=== PATIENT | female | born 1945 ===

== ENCOUNTER 2023-02-08 06:55 | Day surgery (SDC) | payer MEDICARE, BC, SELFPAY ==
--- OUTSIDE RECORDS SUMMARY | 2023-02-08 06:56 | XMS_ITS | Continuity of Care Document ---
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 Name Role Phone Ricky Luisa Dalal Primary Care Physician Encounter LT_[place] FIN [id number] Date(s): 04/25/22 - 05/15/22 [facility] [address] [address] Encounter Diagnosis Pain in right shoulder(Discharge Diagnosis) - 04/25/22 Discharge Disposition: Home Attending Physician: Norm Wells Admitting Physician: Luisa García Referring Physician: Luisa García Functional Status 05/09/22 Prior ADL Status Independent Prior Mobility Status Independent Prior Instrumental ADL Level Independent Prior Cognitive-Communication Skills Ind ependent 04/25/22 Lives With Significant other Living Situation Home independently Patient's Responsibilities Rehab Communi ty mobility, 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, 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, Health and wellness, Home management, Laundry, Leisure/Play/Hobbies, Meal preparation, Personal ADL, Shopping, Social participation Problem List Condition Confirmation Course Effective Dates Status Health St atus Informant Atrial fibrillation Confirmed Active Physical therapy Note * Jane Perez: PERFORM Event Display: Physical Therapy Rehab Note Authored Date: [id number] * Jane Perez: PERFORM Event Display: Physical Therapy Rehab Note Authored Date: [id number] * Event Display: Physical Therapy Rehab Note Patient Care team information Personnel Name: Luisa Ricky Address: Address: [address] [place] [id number]
--- OUTSIDE RECORDS SUMMARY | 2023-02-08 06:57 | XMS_ITS | Patient Health Record ---
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 Name Role Phone Ronald Mariama cedeño Primary Care Provider [phone] Allergies Allergen (clinical drug ingredient) Drug/Non Drug Allergy documented on EMR Reaction Allergy Type Onset Date Status denosumab Prolia extreme fatigue, myalgia Drug Allergy Active solifenacin VESIcare fatigue Drug Allergy Activ e Reason For Referral No Information Medications Medication SIG (Take, Route, Frequency, Duration) Notes Start Date End Date Status Gabapentin 100 MG 1 capsule Orally Onc e a day for 90 days 03/23/2019 Not-Taking Famvir 500 MG 1 tablet Orally PRN cold sores 02/12/2019 Active Gemfibrozil 600 MG TAKE 1 TABLET DAILY Not-Taking Eliquis 5 MG as directed Orally twice daily Active FLUoxetine HCl 20 MG 1 capsule Orally On ce a day for 90 Not-Taking Atorvastatin Calcium 40 MG TAKE 1 TABLET ONCE DAILY Orally Once a day Active Losartan Potassium-HCTZ 50-12.5 MG TAKE 1 TABLET DAILY Orally Once a day Active metFORMIN HCl 500 MG TAKE ONE-HALF (1/2) TABLET WITH A MEAL ONCE A DAY Not-Taking Omeprazole 20 MG TAKE 1 CAPSULE DAILY Orally Once a day Active Carvedilol 25 MG TAKE 1 TABLET TWICE A DAY DIRECTED Orally Twice a day Active Flecainide Acetate 50 MG as directed Ora lly twice a day Active Calcium + D3 600-200 MG-UNIT Orally Not-Taking Senokot Laxative Gummies 8.7 MG 4 tablets as needed Orally Once a day for 30 day(s) OTC Active Vitamin B Complex - Orally Not-Taking Detrol LA 4 MG 1 capsule Orally Onc e a day Active Tolterodine Tartrate ER 4 MG TAKE 1 CAPSULE DAILY Not-Curtis ing Sertraline HCl 50 MG 1 tablet Orally Onc e a day Active Aspir-81 81 MG 1 tablet Orally Once a day Not-Taking Fenofibrate 54 MG 1 tablet with food Orally Once a day Active Immunizations Vaccine Route Administration Date Status Comme nts Pneumococcal IM Intramuscular 03/25/2014 Administered INFLUENZA VIRUS VACCINE FLUVIRIN Unknown 03/10/2015 Administered @SUPR 1 MONTH AGO INFLUENZA VIRUS VACCINE FLUVIRIN IM Intramuscular 02/22/2017 Administered Influenza 'afluria' given pt tolerated...Eb Pneumococcal IM Intramuscular 02/22/2017 Administered Pneu mococcal 23 given pt tolerated...Eb Tdap TETNUS IM Intramuscular 07/15/2018 Administered Pt tolerated injection well [facility] [id number] Prevnar 13/pneumococcal 13 Unknown 02/23/2021 Administered Prevnar 13 given [facility]#[id number] Social History Tobacco Use: Social History Observation Description Date Details (start date - stop date) Never Smoker NA - NA Tobacco Use/Smoking Question Answer Notes Are you a nonsmoker Alcohol Screen Question Answer Notes Did you have a drink contain ing alcohol in the past year? Yes How often did you have a dri nk containing alcohol in the past year? Monthly or less (1 point) How many drinks did you have on a typical day when you were drinking in the past year? 1 or 2 drinks (0 point) How often did you have 6 or more drinks on one occasion in the past year? Never (0 point) Points 1 Interpretation Negative Tobacco use other than smoking: Question Answer Notes Are you an other tobacco user? N o Problems Problem Type SNOMED Code ICD Code Onset Dates Problem Status W/U Status Risk Notes Problem Gastro-esophageal reflux disease without esophagitis (311629999) Gastro-esophagea l reflux disease without esophagitis (K21.9) Active confirmed Problem Screening for malignant neoplasm of breast (026314872) Encounter for screening mammogram for malignant neoplasm of breast (Z12.31) Active confirmed Problem Screening for malignant neoplasm of colon (572493186) Encounter for screening for malignant neoplasm of colon (Z12.11) Active confirmed Problem Screening for osteoporosis (479544063) Encounter for screening for osteoporosis (Z13.820) Active confirmed Problem Vaccination given (399371433) Encounter for immunization (Z23) Active confirmed Problem Essential hypertension (79247547) Essential (primary) hypertension (I10) Active confirmed Problem Body mass index 30+ - obesity (297306417) Body mass index (BMI) 30.0-30.9, adult (Z68.30) Active confirmed Problem Hyperlipidemia (59953059) Hyperlipidemia, unspecified (E78.5) Active confirmed Problem Hyperlipidemia (81022406) Other hyperlipidemia (E78.4) Active confirmed Problem Complication due to diabetes mellitus type 2 (42742687486141) Type 2 diabetes mellitus with other specified complication (E11.69) Active confirmed Problem Body mass index 30.0 0 to 34.99 (320441541703607) Body mass index (BMI) 31.0-31.9, adult (Z68.31) Active confirmed Problem Vitamin D deficiency (12471713) Vitamin D deficiency, unspecified (E55.9) Active confirmed Problem Mixed hyperlipidemia (550077314) Mixed hyperlipidemia (E78.2) Active confirmed Problem Cough (64170788) Cough (R05) Active confirmed Problem Constipation (78586065) Constipation, unspecified (K59.00) Active confirmed Problem Fatty liver (901515771) Fatty (change of) liver, not elsewhere classified (K76.0) Active confirmed Problem Abnormal gait (08416606) Unsteadiness on feet (R26.81) Active confirmed Problem Type II diabetes mellitus without complication (613378644) Type 2 diabetes mellitus without complications (E11.9) Active confirmed Problem Paroxysmal atrial fibrillation (112013084) Paroxysmal atrial fibrillation (I48.0) Active confirmed Problem Diabetes mellitus without complication (511691503) Other specified diabetes mellitus without complications (E13.9) Active confirmed Problem Atherosclerosis of aorta (67305153) Atherosclerosis of aorta (I70.0) Active confirmed CTA of the chest 07/2015 Problem Atherosclerosis of artery (614185650) Atherosclerosis of other arteries (I70.8) Active confirmed Ct of pelvis 02/2019 in docs, calcified iliac arteries Problem Herpesviral vesicula r dermatitis (486110632) 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) Active confirmed Problem Basal cell carcinoma of nose (648847363) Basal cell carcinoma of skin of nose (C44.311) Active confirmed Problem Basal cell carcinoma of face (336066318) Basal cell carcinoma of skin of other parts of face (C44.319) Active confirmed Problem Malignant neoplasm o f skin (704532698) Unspecified malignant neoplasm of skin, unspecified (C44.90) Active confirmed Problem Basal cell carcinoma of skin (268947379) Basal cell carcinoma of skin, unspecified (C44.91) Active confirmed Problem Malignant neoplasm o f female breast (348461524) Malignant neoplasm of unspecified site of unspecified female breast (C50.919) Active confirmed Problem Benign neoplasm of skin of face (66600993) Other benign neoplasm of skin of other parts of face (D23.39) Active confirmed Problem Major depression, single episode, in complete remission (33541923) Major depressive disorder, single episode, in full remission (F32.5) Active confirmed Problem Seborrheic keratosis (730542279) Other seborrheic keratosis (L82.1) Active confirmed Problem Acquired spondylolisthesis (199901792) Spondylolysis, cervical region (M43.02) Active confirmed Problem 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, 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) Active confirmed Problem Overactive bladder (121823011) Overactive bladder (N32.81) Active confirmed Problem Skin sensation disturbance (62220177) Paresthesia of skin (R20.2) Active confirmed Problem Elevated levels of transaminase & lactic acid dehydrogenase (807421025) Nonspecific elevation of levels of transaminase and lactic acid dehydrogenase [LDH] (R74.0) Active confirmed Problem Long-term current us e of antiplatelet drug (730856483836850) detention (current) use of aspirin (Z79.82) Active confirmed Problem Pure hypercholesterolemia (331495123) Pure hypercholesterol emia, unspecified (E78.00) Active confirmed Problem Chronic idiopathic constipation (36973998) Chronic idiopathic constipation (K59.04) Active confirmed Problem 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) Cervical disc disorder with myelopathy, mid-cervical region, unspecified level (M50.020) Active confirmed Problem Body mass index 30+ - obesity (776463868) Body mass index [BMI]30.0-30.9, adult (Z68.30) Active confirmed Encounters Encounter Location Date Provider Diagnosis [facility] [address] [place], [place] [id number] 02/16/2022 [facility] [address] [place], [place] [id number] 02/23/2022 [facility] [address] [place], [place] [id number] 12/18/2022 Mariama Cardenas Plan Of Treatment Pending Test Test Name Order Date DEXA 02/12/2019 DEXA 02/18/2018 Vitamin B12 and Folate 04/17/2016 Hemoglobin A1c 03/02/2017 Hemoglobin A1c 02/23/2021 Lipids, Total, Serum 02/22/2017 TSH 06/08/2014 TSH+Free T4 06/18/2017 MRI : C spine 05/09/2017 Urine Culture and Sensitivity 03/15/2015 Urine Culture and Sensitivity 06/08/2014 Urine Culture and Sensitivity 06/06/2016 BUN, Creatinine 05/09/2017 MRI : Brain with and without contrast Vitamin D, 25-Hydroxy 03/15/2015 Microalb/Creat Ratio, Randm Ur 9 TSH+Free T4 04/17/2016 URINALYSIS REFLEX 03/15/2015 CMP 06/08/2014 CMP 07/26/2014 CMP 02/22/2017 CMP 05/03/2014 CMP 04/17/2016 CMP 06/18/2017 CMP 03/15/2015 HGB A1C 02/22/2017 HGB A1C 04/17/2016 CT SACRUM AND COCCYX WITHOUT CONTRAST US LIVER 04/11/2015 BIOPSY, SKIN ADD-ON 04/17/2018 urine microalbumin 04/17/2016 urine microalbumin 02/22/2017 Microalb/Creat Ratio, Randm Ur 8 Vitamin D, 1,25 + 25-Hydroxy 03/16/2019 OCCULT BLOOD IFOB 06/18/2017 CBC (INCLUDES DIFF/PLT) 03/16/2019 CBC 02/23/2021 CBC 04/17/2016 CBC 02/22/2017 LIPID PANEL 06/18/2017 LIPID PANEL 04/17/2016 CT ABDOMEN & PELVIS W/WO CONT 02/23/2021 LIPID PANEL 03/16/2019 VITAMIN D 25-HYDROXY 06/18/2017 VITAMIN D 25-HYDROXY 04/17/2016 CBC 06/18/2017 CMP 02/23/2021 CMP 03/16/2019 BMP 03/23/2019 CT Abdomen 02/12/2019 Biospy Left Side Face 03/08/2021 Biospy Right Side Nose 03/08/2021 Insurance Providers Payer Name Payer Address Payer Phone Subscriber Number Group Number Insured Name Patient Relationship to Insured Coverage Start Date Coverage End Date Medicare PartAB [address] [place] [address] [id number] SHASHANK TORRES Self - patient is the insured 1 [facility] Insurance Comp [address] [place] [phone] [id number] PLAN F SHASHANK TORRES Self - patient is the insured 6 Medical (General) History Medical History History ICD Code BREAST CANCER 2012 IORT 2013 appendicitis- Appendectomy tonsillectomy bladder suspension BOKEN WRIST ess Hypertension Hyperlipidemia afib Surgical History Surgery Date(Month/Year) IORT 2013 tonsillectomy 1968 bladder suspension 1984 appendectomy 1970 Mohs proceedure for basal cell cancer no se Hospitalization History Reason Date(Month/Year) SEE ABOVE
--- OUTSIDE RECORDS SUMMARY | 2023-02-08 06:57 | XMS_ITS | Continuity of Care Document ---
Author Name Unknown Address [address] [place] [address] Phone [facility] Address [address] [place] [address] Phone Care Team Providers Care Occupational Therapy Co Director Name Role Phone MD Fransisco Carmen Primary Care Provider Care Teams Patient Care Team Team Status: Active Member Role Status Mamta Carmen MD Primary Care Provider Active Visit Care Team Team Status: Inactive Member Role Status Mamta Carmen MD Primary Care Provide r, Attending Provider, Referring Provider Active Visit Care Team Team Status: Inactive Member Role Status Mamta Carmen MD Primary Care Provide r, Attending Provider, Referring Provider Active Chief Complaint and Reason for Visit Chief Complaint New Patient (PCP Onl y) LAB Reason for Visit Pre-op exam Allergies, Adverse Reactions, Alerts Allergen Type Severity Reaction Last Updated Verified Status solifenacin Allergy Unknown Fatigue January 17, 2023 1:30pm Ye s Active Social History Smoking Status Unknown if ever smoked Additional Data Assigned Sex Female Family History Relationship Condition Age at Onset Recorded Date/T edwardo mother Heart failure Unknown 64 father Heart disease Unknown Problems Active Problems Medical Problem Onset Date Status Multiple nevi Active Back pain, lumbosacral Active UTI (urinary tract infection) Ac tive H/O wrist surgery Active H/O lumpectomy Active Screening for malignant neoplasm of colon Active History of mammogram Active Skin tag Active Diabetes mellitus Active OAB (overactive bladder) Active Overactive bladder Active Wrist pain Active Anxiety Active Fibrillation, atrial Active Depression Active History of bladder suspension procedure Active Heart murmur Active Hyperlipemia Active History of Papanicolaou smear of cervix Active Arm pain, right Active Night sweats Active Over weight Active Breast cancer Active Valgus deformity of great toe Ac tive Pre-op exam Active Change in bowel movement Active Radiculopathy Active Trigger finger Active History of appendectomy Active History of partial mastectomy Ac tive History of tonsillectomy Active Hip pain Active Coronary vasospasm Active Gastroesophageal reflux Active GERD (gastroesophageal reflux disease) Active Cancer Active Pes planovalgus Active High blood pressure Active Hypertension Active Pneumonia Active Dehydration Active Inactive/Resolved Problems Medical Problem Onset Date Status Hx of colonoscopy Resolved Medications Medication Status Dose Units Route Directions Qty Days St art Date End Date Instructions Fenofibrate Disconti nued 54 MG PO daily October 18, 2022 9:05am October 18, 2022 11:34a m Tolterodine Disconti nued 4 MG PO daily October 18, 2022 9:06am October 18, 2022 11:34a m By mouth once a day Atorvastatin Disconti nued 40 MG PO daily October 18, 2022 9:06am November 19, 2022 2:24pm by mouth once a day for Cholesterol Carvedilol Disconti nued 25 MG PO 2 times per day 180 October 18, 2022 9:06am Octobe r 2022 1:59pm must administer with a meal/food Omeprazole Magnesium (Acid Loan Review Officer (Omeprazole) ) 20 mg capsule,windy yed release(DR/E C) Disconti nued 20 MG PO daily October 18, 2022 9:07am Octobe r 2022 1:59pm by mouth once a day Tolterodine Active 4 MG PO daily October 18, 2022 11:33am Fenofibrate Disconti nued 54 MG PO daily October 18, 2022 11:34am Octobe r 2022 1:59pm Atorvastatin Disconti nued 40 MG PO daily November 19, 2022 2:24pm Octobe r 2022 1:59pm by mouth once a day for Cholesterol Atorvastatin Active 40 MG PO daily 90 Octo mallika 2022 1:57pm by mouth once a day for Cholesterol Carvedilol Active 25 MG PO 2 times p er day 180 January 17, 2023 1:57pm must administer with a meal/food Famciclovir Active 125 MG PO 2 times per day January 17, 2023 1:58pm BY mouth twice a day as needed. Fenofibrate Active 54 MG PO daily 90 Octob er 2022 1:58pm Losartan-Hyd rochlorothia zide Active 1 TAB PO daily January 17, 2023 1:58pm by mouth once a day Omeprazole Magnesium (Acid Loan Review Officer (Omeprazole) ) 20 mg capsule,windy yed release(DR/E C) Active 20 MG PO daily 90 January 17, 2023 1:59pm by mouth once a day Sertraline Active 100 MG PO daily 90 Octobe r 2022 1:59pm by mouth once a day for mood Omeprazole Magnesium (Acid Loan Review Officer (Omeprazole) ) 20 mg capsule,windy yed release(DR/E C) Disconti nued 20 MG PO daily September 27, 2022 12:00am October 18, 2022 9:07am by mouth once a day Carvedilol Disconti nued 25 MG PO 2 times per day September 27, 2022 12:00am October 18, 2022 9:07am must administer with a meal/food Atorvastatin Disconti nued 40 MG PO daily September 27, 2022 12:00am October 18, 2022 9:07am by mouth once a day for Cholesterol Tolterodine Disconti nued 4 MG PO daily September 27, 2022 12:00am October 18, 2022 9:07am By mouth once a day Famciclovir Disconti nued 125 MG PO 2 times per day September 27, 2022 12:00am Octobe r 2022 1:33pm BY mouth twice a day as needed. Ketoconazole Active 1 APPLIC TOPICAL LY 2 times per day September 27, 2022 12:00am 1 a small amount to affected area twice a day as needed. Fenofibrate Disconti nued 54 MG PO daily September 27, 2022 12:00am October 18, 2022 9:07am Sertraline Disconti nued 100 MG PO daily September 27, 2022 12:00am Octobe r 2022 1:59pm by mouth once a day for mood Losartan-Hyd rochlorothia zide Disconti nued 1 TAB PO daily September 27, 2022 12:00am Octobe r 2022 1:59pm by mouth once a day Apixaban (Eliquis) 5 mg tablet Active 5 MG PO 2 times per day September 27, 2022 12:00am Twice a day Flecainide Active 50 MG PO 2 times p er day September 27, 2022 12:00am twice a day Famciclovir Disconti nued 125 MG PO 2 times per day January 17, 2023 1:31pm Octobe r 2022 1:59pm BY mouth twice a day as needed. Immunizations Immunization Event Date Not Given Reason Dose Number Heel Cementer Machine Lot Number Vaccine Information Statement (VIS) Detail *Td Adult Unsp Formulation June 25, 1996 *COVID-19 Moderna mRNA (12Y Up)(Spikevax) May 13, 2020 *COVID-19 Moderna mRNA (12Y Up)(Spikevax) June 10, 2020 *Influenza, unspecified formulation January 16, 1996 *Influenza, unspecified formulation January 27, 2000 *Influenza, unspecified formulation January 28, 2016 *Influenza, unspecified formulation April 07, 2020 *Influenza, unspecified formulation January 07, 2020 *Influenza, unspecified formulation March 24, 2021 Relevant Diagnostic Tests and/or Laboratory Data Laboratory Results Test Date/Time Result Interpretation Reference Range Result Comment Performing Site White Blood Count January 17, 2023 8:00am 9.42 K/mm3 4.0-11.0 WEE[facility] [id number] [address] [facility] [address] Red Blood Count January 17, 2023 8:00am 4.54 M/mm3 3.85-5.4 WEEKS [facility] 36673-06 [address] [facility] [address] Hemoglobin January 17, 2023 8:00am 11.4 gm/dL 12.0-16.0 [facility]EE[facility] 16532-14 [address] [facility] [address] Hematocrit January 17, 2023 8:00am 37.6 % 36.0-47 [facility] 62223-51 [address] [facility] [address] Mean Corpuscular Volume January 17, 2023 8:00am 82.8 fl 82-98 [facility] 23359-48 [address] [facility] [address] Mean Corpuscular Hemoglobin January 17, 2023 8:00am 25.1 pg 27-34 [facility] 95841-02 [address] [facility] [address] Mean Corpuscular Hemoglobin Concent January 17, 2023 8:00am 30.3 g/dl 27-34 [facility] 55788-32 [address] [facility] [address] Red Cell Distribution Width January 17, 2023 8:00am 16.1 % 11.0-15.0 [facility] 89332-39 [address] [facility] [address] Platelet Count January 17, 2023 8:00am 378 K/uL 130-430 [facility] 67171-93 [address] [facility] [address] Mean Platelet Volume January 17, 2023 8:00am 10.4 fL 8.0-12.5 [facility] 14718-01 [address] [facility] [address] Thyroid Stimulating Hormone (TSH) January 17, 2023 8:00am 1.95 uIU/ml 0.32-5.6 [facility]EE[facility] 38182-24 [address] [facility] [address] Hemoglobin A1c January 17, 2023 8:00am 7.2 % 4.0-6.0 [facility]EE[facility] 60005-63 [address] [facility] [address] Estimated Average Glucose mg/dL January 17, 2023 8:00am 160 mg/dL [facility] 13312-98 [address] [facility] [address] Urine Color January 17, 2023 8:00am Light yellow YELLOW [facility] 04414-59 [address] [facility] [address] Urine Appearance January 17, 2023 8:00am Clear CLEAR [facility] 93395-17 [address] [facility] [address] Urine Glucose (UA) January 17, 2023 8:00am Negative mg/dl NEG [facility] 74375-24 [address] [facility] [address] Urine Bilirubin January 17, 2023 8:00am Negative NEG [facility] 80802-12 [address] [facility] [address] Urine Ketones January 17, 2023 8:00am Negative mg/dL NEG [facility] 50326-72 [address] [facility] [address] Urine Specific Hardy January 17, 2023 8:00am 1.015 1.001-1.03 5 [facility] 75160-08 [address] [facility] [address] Urine Blood January 17, 2023 8:00am Negative NEG [facility] 46270-54 [address] [facility] [address] Urine pH January 17, 2023 8:00am 6.5 5.5-7.5 [facility] 10468-00 [address] [facility] [address] Urine Protein January 17, 2023 8:00am Negative mg/dl NEG [facility] 29019-08 [address] [facility] [address] Urine Urobilinogen January 17, 2023 8:00am 0.2 EU/dL 0.2-1.0 [facility]EE[facility] 79896-09 [address] [facility] [address] Urine Nitrite January 17, 2023 8:00am Negative NEG [facility] 85840-42 [address] [facility] [address] Urine Leukocyte Esterase January 17, 2023 8:00am Negative NEG [facility] 85923-78 [address] [facility] [address] Urine Culture Indicated January 17, 2023 8:00am No NO [facility] 19071-47 [address] [facility] [address] Glucose Level January 17, 2023 8:00am 129 mg/dL 70-100 [facility] 74583-12 [address] [facility] [address] Blood Urea Nitrogen January 17, 2023 8:00am 18 mg/dL 7-25 [facility] 93229-73 [address] [facility] [address] Creatinine January 17, 2023 8:00am 0.98 mg/dL 0.6-1.2 [facility] 88596-96 [address] [facility] [address] Estimat Glomerular Filtration Rate January 17, 2023 8:00am 60 >60 Normal Range: > 60 mL/min/1.73 square metersThis patient's estimated GFR was calculated using the 2020 CKD-EPI equation. Assessment of the estimated GFR is not appropriate when creatinine concentrations are rapidly changing. For clinical situations in which a more precise estimate of GFR is necessary, consider alternative methods of GFR estimation such as a 24-hour urine creatinine clearance. [facility] 79163-18 [address] [facility] [address] Sodium Level January 17, 2023 8:00am 137 mmol/L 138-146 [facility] 73294-54 [address] [facility] [address] Potassium Level January 17, 2023 8:00am 4.1 mmol/L 3.5-5.1 [facility]EE[facility] 24763-83 [address] [facility] [address] Chloride Level January 17, 2023 8:00am 102 mmol/L 98-110 [facility] 90181-90 [address] [facility] [address] Carbon Dioxide Level January 17, 2023 8:00am 27 mmol/L 21-31 [facility] 84770-38 [address] [facility] [address] Anion Gap January 17, 2023 8:00am 12.1 8-16 [facility] 17302-21 [address] [facility] [address] Calcium Level January 17, 2023 8:00am 9.2 mg/dL 8.6-10.3 [facility] 08333-26 [address] [facility] [address] LDL Cholesterol Direct January 17, 2023 8:00am 85 mg/dL <99 [facility] 16101-70 [address] [facility] [address] Total Protein January 17, 2023 8:00am 7.2 gm/dL 6.0-8.3 [facility] 83725-42 [address] [facility] [address] Albumin January 17, 2023 8:00am 4.1 gm/dL 3.5-5.7 [facility] 58365-27 [address] [facility] [address] Total Bilirubin January 17, 2023 8:00am 0.6 mg/dL 0.3-1.0 [facility]EE[facility] 17938-17 [address] [facility] [address] Aspartate Amino Transf (AST/SGOT) January 17, 2023 8:00am 23 IU/L 13-39 [facility] 50594-93 [address] [facility] [address] Alanine Aminotransfera se (ALT/SGPT) January 17, 2023 8:00am 16 U/L 7-52 [facility] 93459-25 [address] [facility] [address] Alkaline Phosphatase January 17, 2023 8:00am 83 U/L 34-104 [facility] 45684-05 [address] [facility] [address] Urine Random Microalbumin January 17, 2023 8:00am 1.3 mg/dL [facility] 36654-50 [address] [facility] [address] Urine Creatinine January 17, 2023 8:00am 28.9 mg/dL NO REFERENCE RANGE AVAILABLE [facility] 56276-12 [address] [facility] [address] Urine Microalbumin/C reatinine Ratio January 17, 2023 8:00am 44.98 ug/mg Cr 0-30 [employer] Definition of Microalbuminuria Random CollectionNormal <30 ug/mg creatinineMicroa lbuminuria 30 - 300 ug/mg creatinineClinic al albuminuria >300 ug/mg creatinine [facility]EE[facility] 10287-30 [address] [facility] [address] Vital Signs Vital Reading Result Reference Range Collection Date/Time Height 62.5 [in_i] January 17 9:03am Weight 175.00 [lb_av] January 17, 2023 9:03am Body Temperature 97.7 [degF] 97.6-99.6 January 9:03am Heart Rate 109 /min 60-100 January 17, 2 023 9:03am Respiratory rate 18 /min 12-18 January 9:03am Oxygen saturation by Pulse oximetry 94 % 92-100 January 17, 2023 9 :03am BP Systolic 132 mm[Hg] 90-130 January 17, 2 023 9:03am BP Diastolic 84 mm[Hg] 70-80 January 17, 2 023 9:03am BMI (Body Mass Index) 31.5 kg/m2 Octobe r 2022 9:03am Insurance Providers Guarantor SHASHANK SCHULTZ Address [address] [facility] [address] Contact Info. Home Phone: Payer Policy Id Coverage Id Subscriber's Name Subscriber Id Effective Date Expiration Date ANTH [employer] [facility] [id number] [id number] 23 SHASHANK SCHULTZ [id number] MEDICARE [id number] SHASHANK SCHULTZ [id number] OTHER INS Encounters Encounter Location(s) Arrival/Admit Date Discharge/Depart Date Provider(s) Departed Physician/Provi raquel Office Visit [facility] January 17, 2023 1:21pm January 17, 2023 2:20pm Fransisco Carmen MD Departed Referred [facility] [place] January 17, 2023 2:09pm January 17, 2023 2:10pm Fransisco Carmen MD Recent Diagnosis Onset Date Pre-op exam Assessments Diagnosis Onset Date Resolution Status Pre-op exam noneactive Plan of Treatment Author Fransisco Carmen [facility] Authored January 17, 2023 2 :08pm check A1c- discussed conside ring metformin vs glp 1 . Fu sched in 3 months NSr on exam -followed Dr Patten check labs yearly follow up with Oncology provider at [facility] . medically cleared for cataract repair with stable medical issues. controlled rec try mag citrate for clean out given acute constipation Future Tests Future scheduled test information is unavailable Pending Tests Pending diagnostic test information is unavailable Future Visits Future appointment information is unavailable Referrals to Other Providers Referral information is unavailable Future Procedures Future procedure information is unavailable Future Medications Future medication information is unavailable Patient Instructions Patient instructions are unavailable
--- OUTSIDE RECORDS SUMMARY | 2023-02-08 06:57 | XMS_ITS | Patient Health Record ---
Author Name Unknown Organization [facility] Address [address] [place] [address] Care Team Providers Care Recycling Coordinator Name Role Phone Ronald HENSON, Mariama Primary Care Provider Elder Cantor Unavailable [phone] Allergies No Known Allergies Reason For Referral No Information Medications Medication SIG (Take, Route, Frequency, Duration) Notes Start Date End Date Status Coreg 25 MG 1 tablet Orally Twic e a day for 30 day(s) Active metFORMIN HCl 500 mg 0.5 tablet Orally O nce a day Active PROzac 20 MG 1 capsule Orally Onc e a day for 30 day(s) Active PriLOSEC OTC 20 MG 1 tablet 30 minutes before morning meal Orally Once a day for 30 day(s) Active Detrol LA 4 MG 1 capsule Orally Onc e a day for 30 day(s) Active Lipitor 40 MG 1 tablet Orally Once a day for 30 day(s) Active Losartan Potassium-HCTZ 100-12.5 MG 1 tablet Orally Once a day for 30 day(s) Active Social History Tobacco Use: Social History Observation Description Date Details (start date - stop date) Never Smoker NA - NA Alcohol Screening: Question Answer Notes Did you have a drink containing alcohol in the p ast year? No Points 0 Interpretation Negative Smoking Question Answer Notes Are you a: never smoker Problems Problem Type SNOMED Code ICD Code Onset Dates Problem Status W/U Status Risk Notes Problem 091139748 Spinal stenosis, lumbosacral region (M48.07) Active confirmed Problem 20020112 Other intervertebral disc displacement, lumbar region (M51.26) Active confirmed Problem 369116323536201 Trochanteric bursitis of right hip (M70.61) Active confirmed Problem 04731550 Acute pain of right hip (M25.551) Active confirmed Problem 26870358 DDD (degenerativ e disc disease), lumbar (M51.36) Active confirmed Problem 03066656 Myalgia, other site (M79.18) Active confirmed Plan Of Treatment Pending Test Test Name Order Date Scanogram 04/30/2019 XRAY PELVIS 1VW 05/04/2021 XRAY L SPINE 2VWS AP LAT 05/04/2021 Physical Therapy 2-3x a week x 4 weeks 0 04/30/2019 Insurance Providers Payer Name Payer Address Payer Phone Subscriber Number Group Number Insured Name Patient Relationship to Insured Coverage Start Date Coverage End Date MEDICARE [address] [place] [phone] [id number] Martha Jones Self - patient is the insured 2 [facility] [address] [place] [address] [id number] Martha Jones Self - patient is the insured 0 Medical (General) History Medical History History ICD Code No Hx provided by pt Surgical History Surgery Date(Month/Year) wrist surgery breast cancer bladder suspension, unspecified appendectomy tonsillectomy Hospitalization History Reason Date(Month/Year) for surgeries above
--- OUTSIDE RECORDS SUMMARY | 2023-02-08 06:57 | XMS_ITS | Continuity of Care Document ---
Author Name Unknown Address [address] [place] [address] Phone [facility] Address [address] [place] [address] Phone Care Team Providers Care Knockdown Man Name Role Phone MD Fransisco Carmen Primary Care Provider MD Farnaz Morton Attending Provider Care Teams Patient Care Team Team Status: Active Member Role Status Mamta Carmen MD Primary Care Provider Active Visit Care Team Team Status: Inactive Member Role Status Mamta Carmen MD Primary Care Provide r, Attending Provider, Referring Provider Active Visit Care Team Team Status: Inactive Member Role Status Mamta Carmen MD Primary Care Provider, Referring Prov ider Active Farnaz Morton MD Attending Provider Active Visit Care Team Team Status: Inactive Member Role Status Mamta Carmen MD Primary Care Provide r, Attending Provider, Referring Provider Active Visit Care Team Team Status: Inactive Member Role Status Mamta Carmen MD Primary Care Provider, Referring Prov ider Ирина Morton MD Attending Provider Active Chief Complaint and Reason for Visit Chief Complaint New Patient (PCP Onl y) LAB low back pain R10.9 - Unspecified abdominal pain Reason for Visit Pre-op exam Acute left flank pain Chronic constipation Allergies, Adverse Reactions, Alerts Allergen Type Severity Reaction Last Updated Verified Status solifenacin Allergy Unknown Fatigue January 23, 2023 1:30pm Ye s Active Social History [...] Active Overactive bladder Active Wrist pain Active DM type 2 (diabetes mellitus, type 2) Active Anemia Active Anxiety Active Fibrillation, atrial Active Depression [...] administer with a meal/food Omeprazole Magnesium (Acid [employer] (Omeprazole) ) 20 mg capsule,windy yed release(DR/E C) Disconti nued 20 MG PO daily October 18, 2022 9:07am Octobe r 2022 1:59pm by mouth once a day Tolterodine Disconti nued 4 MG PO daily October 18, 2022 11:33am Octobe r 2022 2:11pm Fenofibrate Disconti nued 54 MG PO daily October 18, 2022 11:34am Octobe r 2022 1:59pm Atorvastatin Disconti nued 40 MG PO daily November 19, 2022 2:24pm Octobe r 2022 1:59pm by mouth once a day for Cholesterol Tolterodine Active 4 MG PO daily Octob er 2022 2:11pm Atorvastatin Active 40 MG PO daily Jano mallika 2022 1:57pm by mouth once a day for Cholesterol Carvedilol Active 25 MG PO 2 times p er day 180 January 17, 2023 1:57pm must administer with a meal/food Famciclovir Active 125 MG PO 2 times per day January 17, 2023 1:58pm BY mouth twice a day as needed. Fenofibrate Active 54 MG PO daily Janob er 2022 1:58pm Losartan-Hyd rochlorothia zide Active 1 TAB PO daily January 17, 2023 1:58pm by mouth once a day Omeprazole Magnesium (Acid [employer] (Omeprazole) ) 20 mg capsule,windy yed release(DR/E C) Active 20 MG PO daily January 17, 2023 1:59pm by mouth once a day Sertraline Active 100 MG PO daily Janobe r 2022 1:59pm by mouth once a day for mood Omeprazole Magnesium (Acid [employer] (Omeprazole) ) 20 mg capsule,windy yed release(DR/E [...] Event Date Not Given Reason Dose Number Program Manager Rn Lot Number Vaccine Information Statement (VIS) Detail [...] 2020 *Influenza, unspecified formulation March 24, 2021 Procedures Procedure Date Performed Status Abdomen 1 View January 23, 2023 2:15pm active Relevant Diagnostic Tests and/or Laboratory Data Laboratory Results Test Date/Time Result Interpretation Reference Range Result Comment Performing Site White Blood Count January 17, 2023 8:00am 9.42 K/mm3 4.0-11.0 WEEKS [facility] 42572-47 [address] [facility] [address] Red Blood Count January 17, 2023 8:00am 4.54 M/mm3 3.85-5.4 WEEKS [facility] 99408-58 [facility] [address] Hemoglobin October 12th, 2023 8:00am 11.4 gm/dL 12.0-16.0 WEEKS [facility] 47137-13 [facility] [address] Hematocrit January 17, 2023 8:00am 37.6 % 36.0-47 [facility]EE[facility] 26703-72 [facility] [address] Mean Corpuscular Volume January 17, 2023 8:00am 82.8 fl 82-98 [facility] 34380-19 [facility] [address] Mean Corpuscular Hemoglobin January 17, 2023 8:00am 25.1 pg 27-34 [facility] 04912-20 [facility] [address] Mean Corpuscular Hemoglobin Concent January 17, 2023 8:00am 30.3 g/dl 27-34 [facility] 26470-94 [facility] [address] Red Cell Distribution Width January 17, 2023 8:00am 16.1 % 11.0-15.0 [facility]EEKS [facility] 42911-71 [facility] [address] Platelet Count January 17, 2023 8:00am 378 K/uL 130-430 [facility] 32949-06 [facility] [address] Mean Platelet Volume January 17, 2023 8:00am 10.4 fL 8.0-12.5 WEEKS [facility] 10626-66 [address] [facility] [address] Thyroid Stimulating Hormone (TSH) January 17, 2023 8:00am 1.95 uIU/ml 0.32-5.6 [facility] 80181-17 [address] [facility] [address] Hemoglobin A1c January 17, 2023 8:00am 7.2 % 4.0-6.0 WEEKS [facility] 39488-03 [address] [facility] [address] Estimated Average Glucose mg/dL January 17, 2023 8:00am 160 mg/dL [facility] 65198-60 [address] [facility] [address] Urine Color January 17, 2023 8:00am Light yellow YELLOW [facility] 07839-16 [address] [facility] [address] Urine Appearance January 17, 2023 8:00am Clear CLEAR [facility] 39082-36 [facility] [address] Urine Glucose (UA) January 17, 2023 8:00am Negative mg/dl NEG [facility] 79765-66 [facility] [address] Urine Bilirubin January 17, 2023 8:00am Negative NEG [facility] 64568-21 [facility] [address] Urine Ketones January 17, 2023 8:00am Negative mg/dL NEG [facility] 06958-47 [address] [facility] [address] Urine Specific [place] January 17, 2023 8:00am 1.015 1.001-1.03 5 [facility]EE[facility] 91725-89 [facility] [address] Urine Blood January 17, 2023 8:00am Negative NEG [facility] 65710-84 [facility] [address] Urine pH January 17, 2023 8:00am 6.5 5.5-7.5 [facility] 20727-99 [address] [facility] [address] Urine Protein January 17, 2023 8:00am Negative mg/dl NEG [facility] 34972-93 [facility] [address] Urine Urobilinogen January 17, 2023 8:00am 0.2 EU/dL 0.2-1.0 WEEKS [facility] 45547-83 [address] [facility] [address] Urine Nitrite January 17, 2023 8:00am Negative NEG [facility] 54151-63 [address] [facility] [address] Urine Leukocyte Esterase January 17, 2023 8:00am Negative NEG [facility] 27057-21 [facility] [address] Urine Culture Indicated January 17, 2023 8:00am No NO [facility] 81924-85 [facility] [address] Glucose Level January 17, 2023 8:00am 129 mg/dL 70-100 [facility] 44507-34 [facility] [address] Blood Urea Nitrogen January 17, 2023 8:00am 18 mg/dL 7-25 [facility] 89156-78 [facility] [address] Creatinine January 17, 2023 8:00am 0.98 mg/dL 0.6-1.2 [facility]EE[facility] 26064-96 [facility] [address] Estimat Glomerular Filtration Rate January 17, 2023 [...] 24-hour urine creatinine clearance. [facility] 90236-56 [address] [facility] [address] Sodium Level January 17, 2023 8:00am 137 mmol/L 138-146 [facility] 40086-25 [address] [facility] [address] Potassium Level January 17, 2023 8:00am 4.1 mmol/L 3.5-5.1 [facility]EE[facility] 00597-51 [facility] [address] Chloride Level January 17, 2023 8:00am 102 mmol/L 98-110 [facility] 79201-62 [facility] [address] Carbon Dioxide Level January 17, 2023 8:00am 27 mmol/L 21-31 [facility]EE[facility] 84919-25 [facility] [address] Anion Gap January 17, 2023 8:00am 12.1 8-16 [facility] 65337-95 [facility] [address] Calcium Level January 17, 2023 8:00am 9.2 mg/dL 8.6-10.3 [facility]EEKS [facility] 51413-68 [address] [facility] [address] LDL Cholesterol Direct January 17, 2023 8:00am 85 mg/dL <99 [facility] 49061-01 [address] [facility] [address] Total Protein January 17, 2023 8:00am 7.2 gm/dL 6.0-8.3 [facility]EE[facility] 17327-14 [facility] [address] Albumin January 17, 2023 8:00am 4.1 gm/dL 3.5-5.7 [facility]EE[facility] 66106-85 [facility] [address] Total Bilirubin January 17, 2023 8:00am 0.6 mg/dL 0.3-1.0 [facility]EE[facility] 98869-16 [address] [facility] [address] Aspartate Amino Transf (AST/SGOT) January 17, 2023 8:00am 23 IU/L 13-39 [facility]EE[facility] 13370-84 [address] [facility] [address] Alanine Aminotransfera se (ALT/SGPT) January 17, 2023 8:00am 16 U/L 7-52 [facility] 14699-03 [address] [facility] [address] Alkaline Phosphatase January 17, 2023 8:00am 83 U/L 34-104 [facility] 60594-88 [facility] [address] Urine Random Microalbumin January 17, 2023 8:00am 1.3 mg/dL [facility] 80198-63 [facility] [address] Urine Creatinine January 17, 2023 8:00am 28.9 mg/dL NO REFERENCE RANGE AVAILABLE [facility] 08284-98 [address] [facility] [address] Urine Microalbumin/C reatinine Ratio January 17, 2023 8:00am 44.98 ug/mg Cr 0-30 [place] [employer] Definition of Microalbuminuria Random CollectionNormal <30 ug/mg creatinineMicroa lbuminuria 30 - 300 ug/mg creatinineClinic al albuminuria >300 ug/mg creatinine [facility]EE[facility] 33183-59 [address] [facility] [address] Vital Signs Vital Reading Result Reference Range Collection Date/Time Height 62.5 [in_i] January 17, 2 023 9:03am Weight 175.00 [lb_av] January 17, 2023 9:03am Body Temperature 97.7 [degF] 97.6-99.6 January 9:03am Heart Rate 109 /min 60-100 January 17, 2 023 9:03am Respiratory rate 18 /min -January 9:03am Oxygen saturation by Pulse oximetry 94 % 92-100 January 17, 2023 9 :03am BP Systolic 132 mm[Hg] 90-130 January 17, 2 023 9:03am BP Diastolic 84 mm[Hg] 70-80 January 17, 2 023 9:03am BMI (Body Mass Index) 31.5 kg/m2 Octobe 2022 9:03am Height 62.5 [in_i] January 23, 2 023 1:34pm Weight 178.00 [lb_av] January 23, 2023 1:34pm Body Temperature 97 [degF] 97.6-99.6 January 1:34pm Heart Rate 85 /min 60-100 January 23, 2 023 1:34pm Respiratory rate 16 /min -January 1:34pm Oxygen saturation by Pulse oximetry 97 % 92-100 January 23, 2023 1 :34pm BP Systolic 122 mm[Hg] 90-130 January 23, 2 023 1:34pm BP Diastolic 82 mm[Hg] 70-80 January 23 023 1:34pm BMI (Body Mass Index) 32.0 kg/m2 Octobe r 2022 1:34pm Insurance Providers Guarantor SHASHANK SCHULTZ Address [address] [address] Contact Info. Home Phone: Payer Policy Id Coverage Id Subscriber's Name Subscriber Id Effective Date Expiration Date [employer] COMP [id number] [id number] [employer] [id number] MEDICARE [id number] SHASHANK SCHULTZ [id number] OTHER INS Encounters Encounter Location(s) Arrival/Admit Date Discharge/Depart Date Provider(s) Departed Physician/Prov ider Office Visit [facility] January 17, 2023 1:21pm January 17, 2023 2:20pm Fransisco Carmen MD Departed Referred [facility] [place] January 17, 2023 2:09pm January 17, 2023 2:10pm Fransisco Carmen MD Departed Physician/Prov ider Office Visit [facility] January 23, 2023 1:29pm January 23, 2023 2:27pm Farnaz Morton MD Departed Referred [facility] January 23, 2023 2:08pm January 23, 2023 2:09pm Farnaz Morton MD Recent Diagnosis Onset Date Pre-op exam Acute left flank pain Chronic constipation Assessments Diagnosis Onset Date Resolution Status Pre-op exam noneactive Acute left flank pain noneac tive Chronic constipation noneact da Plan of Treatment Author Fransisco Carmen [facility] Authored January 17, 2023 2 :08pm check A1c- discussed conside ring metformin vs glp 1 . Fu sched in 3 months NSr on exam -followed Dr Patten check labs yearly follow up with Oncology provider at Located within [facility] . medically cleared for cataract repair with stable medical issues. controlled rec try mag citrate for clean out given acute constipation Author Farnaz Morton [facility] Authored January 23, 2023 2 :11pm Acute uncontrolled L flank p ain potential muscle strain vs nephrolithiaisis (less likely w neg UA) vs constipation related. Obtain KUB. Trial heat/ice, topical pain relief, stretches. Discussed muscle relaxer risks/benefits/se defer for now, f/u XR result and monitor sx. For constipation discussed Mg citrate useful PRN, may recommend miralax or daily mg ox for regular use for goal soft BMs no straining. Future Tests Future scheduled test information is unavailable Pending Tests Test Name Ordered Date Scheduled Date Abdomen 1 View January 23, 2023 1:53pm Octobe r 2022 2:15pm Future Visits Future appointment information is unavailable Referrals to Other Providers Referral information is unavailable Future Procedures Future procedure information is unavailable Future Medications Future medication information is unavailable Patient Instructions Patient instructions are unavailable
--- OUTSIDE RECORDS SUMMARY | 2023-02-08 06:58 | XMS_ITS | Continuity of Care Document ---
Author Name Unknown Address [address] [place] [address] Phone [facility] Practices Address [address] [place] [address] Phone Care Team Providers Care Training Manager Name Role Phone MD Fransisoc Carmen Primary Care Provider MD Farnaz Morton Attending Provider Care Teams Patient Care Team Team Status: Active Member Role Status Mamta Carmen MD Primary Care Provider Active Visit Care Team Team Status: Inactive Member Role Status Mamta Carmen MD Primary Care Provide r, Attending Provider, Referring Provider Active Visit Care Team Team Status: Active Member Role [...] administer with a meal/food Omeprazole Magnesium (Acid Inspector Crystal (Omeprazole) ) 20 mg capsule,windy yed release(DR/E [...] Cholesterol Tolterodine Active 4 MG PO daily Janob er 2022 2:11pm Atorvastatin Active 40 MG [...] mouth once a day Omeprazole Magnesium (Acid Inspector Crystal (Omeprazole) ) 20 mg capsule,windy yed release(DR/E C) Active 20 MG PO daily January 17, 2023 1:59pm by mouth once a day Sertraline Active 100 MG PO daily Janobe r 2022 1:59pm by mouth once a day for mood Omeprazole Magnesium (Acid Inspector Crystal (Omeprazole) ) 20 mg capsule,windy yed release(DR/E [...] Event Date Not Given Reason Dose Number [employer] Worker Lot Number Vaccine Information Statement (VIS) Detail [...] 8:00am 9.42 K/mm3 4.0-11.0 WEEKS Main [facility] 73391-88 [address] [facility] [address] Red Blood Count January 17, 2023 8:00am 4.54 M/mm3 3.85-5.4 WEEKS Main Lab 33980-56 [facility] [address] Hemoglobin January 17, 2023 8:00am 11.4 gm/dL 12.0-16.0 WEEKS Main Lab 38154-95 [facility] [address] Hematocrit January 17, 2023 8:00am 37.6 % 36.0-47 WEEKS Main Lab 65454-40 [facility] [address] Mean Corpuscular Volume January 17, 2023 8:00am 82.8 fl 82-98 WEEKS Main [facility] 84728-14 [facility] [address] Mean Corpuscular Hemoglobin January 17, 2023 8:00am 25.1 pg 27-34 WEEKS Main Lab 63089-38 [facility] [address] Mean Corpuscular Hemoglobin Concent January 17, 2023 8:00am 30.3 g/dl 27-34 WEEKS Main Lab 66765-84 [facility] [address] Red Cell Distribution Width January 17, 2023 8:00am 16.1 % 11.0-15.0 WEEKS Main Lab 14702-81 [facility] [address] Platelet Count January 17, 2023 8:00am 378 K/uL 130-430 WEEKS Main Lab 01913-05 [facility] [address] Mean Platelet Volume January 17, 2023 8:00am 10.4 fL 8.0-12.5 WEEKS Main Lab 42539-03 [facility] [address] Thyroid Stimulating Hormone (TSH) January 17, 2023 8:00am 1.95 uIU/ml 0.32-5.6 WEEKS Main Lab 34175-58 [facility] [address] Hemoglobin A1c January 17, 2023 8:00am 7.2 % 4.0-6.0 WEEKS Main Lab 34982-21 [facility] [address] Estimated Average Glucose mg/dL January 17, 2023 8:00am 160 mg/dL WEEKS Main Lab 12031-24 [facility] [address] Urine Color January 17, 2023 8:00am Light yellow YELLOW WEEKS Main Lab 61866-15 [facility] [address] Urine Appearance January 17, 2023 8:00am Clear CLEAR WEEKS [facility] Lab 23038-48 [facility] [address] Urine Glucose (UA) January 17, 2023 8:00am Negative mg/dl NEG WEEKS Main Lab 59971-32 [facility] [address] Urine Bilirubin January 17, 2023 8:00am Negative NEG WEEKS Main Lab 25560-82 [facility] [address] Urine Ketones January 17, 2023 8:00am Negative mg/dL NEG WEEKS Main Lab 61895-36 [facility] [address] Urine Specific [place] January 17, 2023 8:00am 1.015 1.001-1.03 5 WEEKS Main Lab 01913-92 [facility] [address] Urine Blood January 17, 2023 8:00am Negative NEG WEEKS Main Lab 75456-36 [facility] [address] Urine pH January 17, 2023 8:00am 6.5 5.5-7.5 WEEKS Main Lab 64695-33 [facility] [address] Urine Protein January 17, 2023 8:00am Negative mg/dl NEG WEEKS Main Lab 41492-36 [facility] [address] Urine Urobilinogen January 17, 2023 8:00am 0.2 EU/dL 0.2-1.0 WEEKS Main Lab 83597-05 [facility] [address] Urine Nitrite January 17, 2023 8:00am Negative NEG WEEKS Main Lab 87149-03 [facility] [address] Urine Leukocyte Esterase January 17, 2023 8:00am Negative NEG WEEKS Main Lab 41046-67 [facility] [address] Urine Culture Indicated January 17, 2023 8:00am No NO WEEKS Main Lab 15308-48 [facility] [address] Glucose Level January 17, 2023 8:00am 129 mg/dL 70-100 WEEKS Main Lab 00159-54 [facility] [address] Blood Urea Nitrogen January 17, 2023 8:00am 18 mg/dL 7-25 WEEKS Main Lab 98493-43 [facility] [address] Creatinine January 17, 2023 8:00am 0.98 mg/dL 0.6-1.2 WEEKS Main Lab 60239-76 [facility] [address] Estimat Glomerular Filtration Rate January 17, 2023 [...] 24-hour urine creatinine clearance. WEEKS Main Lab 38922-13 [facility] [address] Sodium Level January 17, 2023 8:00am 137 mmol/L 138-146 WEEKS Main Lab 38948-16 [facility] [address] Potassium Level January 17, 2023 8:00am 4.1 mmol/L 3.5-5.1 WEEKS Main Lab 89488-49 [facility] [address] Chloride Level January 17, 2023 8:00am 102 mmol/L 98-110 WEEKS Main Lab 17200-46 [facility] [address] Carbon Dioxide Level January 17, 2023 8:00am 27 mmol/L 21-31 WEEKS Main Lab 74420-41 [facility] [address] Anion Gap January 17, 2023 8:00am 12.1 8-16 WEEKS Main Lab 37593-64 [facility] [address] Calcium Level January 17, 2023 8:00am 9.2 mg/dL 8.6-10.3 WEEKS Main Lab 95772-75 [facility] [address] LDL Cholesterol Direct January 17, 2023 8:00am 85 mg/dL <99 WEEKS Main Lab 14583-04 [facility] [address] Total Protein January 17, 2023 8:00am 7.2 gm/dL 6.0-8.3 WEEKS Main Lab 67954-00 [facility] [address] Albumin January 17, 2023 8:00am 4.1 gm/dL 3.5-5.7 WEEKS Main Lab 15855-46 [facility] [address] Total Bilirubin January 17, 2023 8:00am 0.6 mg/dL 0.3-1.0 WEEKS Main Lab 48509-15 [facility] [address] Aspartate Amino Transf (AST/SGOT) January 17, 2023 8:00am 23 IU/L 13-39 WEEKS Main Lab 98483-49 [facility] [address] Alanine Aminotransfera se (ALT/SGPT) January 17, 2023 8:00am 16 U/L 7-52 WEEKS Main Lab 60487-41 [facility] [address] Alkaline Phosphatase January 17, 2023 8:00am 83 U/L 34-104 WEEKS Main Lab 44104-32 [facility] [address] Urine Random Microalbumin January 17, 2023 8:00am 1.3 mg/dL [facility] Lab 66563-15 [facility] [address] Urine Creatinine January 17, 2023 8:00am 28.9 mg/dL NO REFERENCE RANGE AVAILABLE [facility] Lab 49809-71 [facility] [address] Urine Microalbumin/C reatinine Ratio January 17, 2023 8:00am 44.98 ug/mg Cr 0-30 [employer] Definition of Microalbuminuria Random CollectionNormal <30 ug/mg creatinineMicroa lbuminuria 30 - 300 ug/mg creatinineClinic al albuminuria >300 ug/mg creatinine [facility] Lab 78678-95 [facility] [address] Diagnostic Imaging Reports Author Farnaz Morton [facility] January 23, 2023 2:11pm Report Date/Time January 23, 2023 1 :42pm [address] [address] Primary Care Note 01/23/23 Patient Name: SHASHANK SCHULTZ Date of : 1945 Age: 77 F Record #: [id number] Acct: [id number] Loc: W.PC.LPO Visit Provider: Farnaz Morton MD Assessment and Plan (1) Acute left flank pain: R10.9 - Unspecified abdominal pain (2) Chronic constipation: K59.09 - Other constipation Plan Acute uncontrolled L flank pain potential muscle strain vs nephrolithiaisis (less likely w neg UA) vs constipation related. Obtain KUB. Trial heat/ice, topical pain relief, stretches. Discussed muscle relaxer risks/benefits/se deferfor now, f/u XR result and monitor sx. For constipation discussed Mg citrate useful PRN, may recommend miralax or daily mg ox for regular use for goal soft BMs no straining. Orders Abdomen 1 View Today K59.00 - Constipation, unspecified, R10.9 - Unspecified abdominal pain, Z87.448 - Personal history of other diseases of urinary system Urine Macroscopic (UA Dip) NC Today M54.50 - Low back pain, unspecified History of Present Illness History of Present Illness Details: //Back pain x2-3d - L back/flank pain dull constant - worse with laying down, with some leg movements - no dysuria no hematuria - +chronic constipation, last BM yesterday - usually q3d, often with straining - used Mg citrate Sat and had better BM prior to yesterday - has used miralax (not very helpful), senna (stopped by PCP) - no f/c - no prior h/o diverticula/diverticulitis - radiates towards front of abdomen - has some home stretches, icyhot has not tried - prior h/o pyelo Has been on atorvastatin for some time with good control of LDL - was told to watch liver and risks of myalgias U/A dip today negative Follows w Cards for afib on Eliquis (no NSAID use) I have reviewed past medical, surgical, social and family history. Intake Visit reasons: low back pain Was patient in overnight setting in the past 30 days?: No Nurse/MA Note: Pt states this started Saturday, lumbar back pain, worst pain in lower left regionback pain. Pt states pain always stretches around to middle/lower abdomen, pt states increased gas, and constipation. Pt states pain is worse laying down. No possible injury. Allergies/Adverse Reactions solifenacin [Vesicare] Allergy (Unknown, Verified 01/23/23 13:30) Fatigue Home Medications apixaban 5 mg tablet (Eliquis) 5 mg PO BID 09/27/22 [History Confirmed 01/23/23] flecainide 50 mg tablet 50 mg PO BID 09/27/22 [History Confirmed 01/23/23] ketoconazole 2 % topical cream 1 application topical BID 09/27/22 [History Confirmed 01/23/23] atorvastatin 40 mg tablet 40 mg PO DAILY #90 tabs 01/17/23 [Rx Confirmed 01/23/23] carvedilol 25 mg tablet 25 mg PO BID 90 days #180 tabs 01/17/23 [Rx Confirmed 01/23/23] famciclovir 125 mg tablet 125 mg PO BID PRN cold sores #30 tabs 01/17/23 [Rx Confirmed 01/23/23] fenofibrate 54 mg tablet 54 mg PO QDAY #90 tabs 01/17/23 [Rx Confirmed 01/23/23] losartan 50 mg-hydrochlorothiazide 12.5 mg tablet 1 tab PO DAILY #90 tabs 01/17/23 [Rx Confirmed 01/23/23] omeprazole magnesium 20 mg capsule,delayed release (Acid Inspector Crystal (omeprazole)) 20 mg PO DAILY #90 caps 01/17/23 [Rx Confirmed 01/23/23] sertraline 100 mg tablet 100 mg PO DAILY #90 tabs 01/17/23 [Rx Confirmed 01/23/23] tolterodine 4 mg capsule,extended release 24 hr 4 mg PO QDAY #90 caps 01/21/23 [Rx Confirmed 01/23/23] Vital Signs 01/23/23 13:34 Height 5 ft 2.5 in Weight 178 lb Body Mass Index (BMI) 32.0 Temperature 97 F L Pulse 85 Respiratory Rate 16 Blood Pressure 122/82 H Pulse Oximetry (%) 97 Provider Reviewed Vital Signs? Yes BMI Screening overweight, high plan-ref Past Patient History Active Problems (Updated 01/18/23 @ 08:50 by Fransisco Carmen MD) DM type 2 (diabetes mellitus, type 2) Anemia Pre-op exam Valgus deformity of great toe (Acute) Pes planovalgus (Acute) Medical History (Updated 01/18/23 @ 08:50 by Fransisco Carmen MD) Anxiety Arm pain, right Back pain, lumbosacral Breast cancer Cancer Change in bowel movement Coronary vasospasm Dehydration Cardiac Vasospasms Depression Diabetes mellitus Fibrillation, atrial Gastroesophageal reflux GERD (gastroesophageal reflux disease) Heart murmur High blood pressure Hip pain History of mammogram 12/30/20 Category 2 09/15/19 Category 3 12/25/19 Category 1 11/25/2018 Category 3 11/15/17 Category 2 11/13/2016 Category 2 09/04/2000 Category 1 08/28/1999 Category 1 History of Papanicolaou smear of cervix 03/27/2001 03/13/1999 Hyperlipemia Hypertension Multiple nevi Night sweats OAB (overactive bladder) Over weight Overactive bladder Pneumonia Radiculopathy Screening for malignant neoplasm of colon Skin tag Trigger finger Left middle Finger UTI (urinary tract infection) Wrist pain Surgical History (Updated 09/27/22 @ 14:58 by Freddie Thompson) H/O lumpectomy 1979 H/O wrist surgery 2007 History of appendectomy 1970 History of bladder suspension procedure 1983 History of partial mastectomy 2012 History of tonsillectomy 1968 Hx of colonoscopy 10/30/2021- [facility]: Sigmoid diverticulosis; Several polyps (TA x7, HP x2), recall 3 years Family History (Updated 09/27/22 @ 13:27 by Freddie Thompson) Mother Heart failure , Onset Age: 64 Father Heart disease Review of Systems Neg for dysuria f/c known h/o osteoporosis Exam Physical Examination Constitutional: Orientation: alert and oriented x3 General: no acute distress HENMT: Head: normocephalic/atraumatic Eyes: General: EOM intact bilaterally Respiratory: Effort and Inspection: normal respiratory effort Auscultation:clear to auscultation bilaterally Cardiovascular: Rate: regular rate Rhythm: regular rhythm Gastrointestinal: +L CVA TTP Palpation: soft and nontender Auscultation: normal bowel sounds Musculoskeletal: L flank/thoracolumbar paraspinals ttp Neurological: General: alert, oriented x3 and gait normal Hgb A1c: Hemoglobin A1c 7.2 % (4.0-6.0) H 01/17/[address] Glu mg/dL 160 mg/dL 01/17/23 Results Urine Dip NC Urine Glucose Neg Last Edit by Ruth Escalante MA on 01/23/23 13:58 Urine Bilirubin Negative Last Edit by Ruth Escalante MA on 01/23/23 13:5 8 Urine Ketone Negative Last Edit by Ruth Escalante MA on 01/23/23 13:58 Urine Specific [place] 1.020 Last Edit by Ruth Escalante MA on 01/23/23 13:58 Urine Blood Negative Last Edit by Ruth Escalante MA on 01/23/23 13:58 Urine pH 7.0 Last Edit by Ruth Escalante MA on 01/23/23 13:58 Urine Protein Neg Last Edit by Ruth Escalante MA on 01/23/23 13:58 Urine Urobilinogen 0.2 Last Edit by Ruth Escalante MA on 01/23/23 13:58 Urine Nitrite Negative Last Edit by Ruth Escalante MA on 01/23/23 13:58 Urine Leukocytes Negative Last Edit by Ruth Escalante MA on 01/23/23 13: 58 Data Reviewed Laboratory Testing Reviewed: Yes WBC 9.42 K/mm3 (4.0-11.0) 01/17/23 Hgb 11.4 gm/dL (12.0-16.0) L 01/17/23 Hct 37.6 % (36.0-47) 01/17/23 Plt Count 378 K/uL (130-430) 01/17/23 BUN 18 mg/dL (7-25) 01/17/23 Creatinine 0.98 mg/dL (0.6-1.2) 01/17/23 EGFR 60 (>60) 01/17/23 Potassium 4.1 mmol/L (3.5-5.1) 01/17/23 Sodium 137 mmol/L (138-146) L 01/17/23 Glucose 129 mg/dL (70-100) H 01/17/23 Hgb A1c 7.2 % (4.0-6.0) H 01/17/23 AST 23 IU/L (13-39) 01/17/23 ALT 16 U/L (7-52) 01/17/23 TSH 1.95 uIU/ml (0.32-5.6) 01/17/23 Coding Level of Care Code OV, EST. TIME BASED, 30-39 min Total minutes spent (including non [id number] time) on DOS: 35 minutes Diagnoses Acute left flank pain R10.9 Chronic constipation K59.09 Recorded by: Farnaz Morton MD <Electronically signed by Farnaz Morton MD> 01/23/23 1411 CC: ~ Vital Signs Vital Reading Result Reference Range Collection Date/Time Height 62.5 [in_i] January 17 023 9:03am Weight 175.00 [lb_av] January 17, [...] Index) 31.5 kg/m2 Octobe r 2022 9:03am Height 62.5 [in_i] January 23, [...] 1:34pm BP Diastolic 82 mm[Hg] 70-80 January 23, 2 023 1:34pm BMI (Body Mass Index) 32.0 kg/m2 Octobe r 2022 1:34pm Insurance Providers Guarantor SHASHANK SCHULTZ Address [address] [id number] Contact Info. Home Phone: Payer Policy Id Coverage Id Subscriber's Name Subscriber Id Effective Date Expiration Date [employer] [id number] SHASHANK SCHULTZ [id number] MEDICARE [id number] SHASHANK SCHULTZ [id number] OTHER INS Encounters Encounter Location(s) Arrival/Admit Date Discharge/Depart Date Provider(s) Departed Physician/Provi raquel Office Visit [facility] January 17, 2023 1:21pm January 17, 2023 2:20pm Fransisco Carmen MD Departed Referred [facility] January 17, 2023 2:09pm January 17, 2023 2:10pm Fransisco Carmen MD Departed Physician/Provi raquel Office Visit [facility] January 23, 2023 1:29pm January 23, 2023 2:27pm Farnaz Morton MD Registered Referred [facility] January 23, 2023 2:08pm Farnaz Morton MD Recent Diagnosis Onset Date Pre-op exam Acute left flank pain Chronic constipation Assessments Diagnosis Onset Date Resolution Status Pre-op exam noneactive Acute left flank pain noneac tive Chronic constipation noneact da Plan of Treatment Author Fransisco Carmen [facility] Authored January 17, 2023 2 :08pm check A1c- discussed conside ring metformin vs glp 1 . Fu sched in 3 months NSr on exam -followed Dr Patten check labs yearly follow up with Oncology provider at [facility] . medically cleared for cataract repair with stable medical issues. controlled rec try mag citrate for clean out given acute constipation [facility] Authored January 23, 2023 2 :11pm Acute [...]
--- OUTSIDE RECORDS SUMMARY | 2023-02-08 06:58 | XMS_ITS | Continuity of Care Document ---
Author Name Unknown Address [address] [place] [address] Phone [facility] Practices Address [address] [place] [address] Phone Care Team Providers Care Parquet Floor Layer Name Role Phone MD Fransisco Carmen Primary Care Provider Care Teams Patient Care Team Team Status: Active Member Role Status Mamta Carmen MD Primary Care Provider Active Patient Care Team Team Status: Active Member Role Status Mamta Carmen MD Primary Care Provider, Attending Prov ider Active Visit Care Team Team Status: Inactive Member Role Status Mamta Carmen MD Primary Care Provide r, Attending Provider, Referring Provider Active Chief Complaint and Reason for Visit Chief Complaint New Patient (PCP Onl y) Reason for Visit Pre-op exam Allergies, Adverse [...] administer with a meal/food Omeprazole Magnesium (Acid Cutter Head Sharpener (Omeprazole) ) 20 mg capsule,windy yed release(DR/E [...] Cholesterol Atorvastatin Active 40 MG PO daily mallika 2022 1:57pm by mouth once a [...] mouth once a day Omeprazole Magnesium (Acid Cutter Head Sharpener (Omeprazole) ) 20 mg capsule,windy yed release(DR/E C) Active 20 MG PO daily January 17, 2023 1:59pm by mouth once a day Sertraline Active 100 MG PO daily Octobe r 2022 1:59pm by mouth once a day for mood Omeprazole Magnesium (Acid Cutter Head Sharpener (Omeprazole) ) 20 mg capsule,windy yed release(DR/E [...] Event Date Not Given Reason Dose Number 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 Lot Number Vaccine Information Statement (VIS) Detail [...] 2021 Relevant Diagnostic Tests and/or Laboratory Data Diagnostic Imaging Reports Author Fransisco Carmen [facility] Practices January 17, 2023 2:08pm Report Date/Time January 16, 2023 1 :08pm [place] [address] New Patient Visit 01/17/23 Patient Name: SHASHANK SCHULTZ Date of : 1945 Age: 77 F Record #: [id number] Acct: [id number] Loc: W.PC.WPO Visit Provider: Fransisco Carmen MD Assessment and Plan (1) Pre-op exam: Z01.818 - Encounter for other preprocedural examination medically cleared for cataract repair with stable medical issues. (2) Diabetes mellitus: Diabetes mellitus type: type 2 Diabetes mellitus ad terminal makeup operator insulin use: without ad terminal makeup operator use Diabetes mellitus complication status: withoutcomplication Qualified Code(s): E11.9 - Type 2 diabetes mellitus without complications E11.9 - Type 2 diabetes mellitus without complications check A1c- discussed considering metformin vs glp 1 . Fu sched in 3 months (3) Fibrillation, atrial: Atrial fibrillation type: unspecified Qualified Code(s): I48.91 -Unspecified atrial fibrillation I48.91 - Unspecified atrial fibrillation NSr on exam -followed Dr Patten (4) Hyperlipemia: Hyperlipidemia type: unspecified Qualified Code(s): E78.5 - Hyperlipidemia, unspecified E78.5 - Hyperlipidemia, unspecified check labs (5) Hypertension: Hypertension type: primary hypertension Qualified Code(s): I10 - Essential (primary) hypertension I10 - Essential (primary) hypertension controlled (6) Breast cancer: Breast location: unspecified site of breast Estrogen receptor status: unspecified Patient sex: female Laterality: left Qualified Code(s): C50.912 - Malignant neoplasm of unspecified site of left female breast C50.919 - Malignant neoplasm of unspecified site of unspecified female breast yearly follow up with Oncology provider at [facility] . Plan rec try mag citrate for clean out given acute constipation Orders Comprehensive Metabolic Panel 1 Day C50.919 - Malignant neoplasm of unspecified site of unspecified female breast, E11.9 - Type 2 diabetes mellitus without complications, E78.5 - Hyperlipidemia, unspecified, I10 - Essential (primary) hypertension, I48.91 - Unspecified atrial fibrillation LDL Cholesterol, Direct 1 Day C50.919 - Malignant neoplasm of unspecified site of unspecified female breast, E11.9 - Type 2 diabetes mellitus without complications, E78.5 - Hyperlipidemia, unspecified, I10 - Essential (primary) hypertension, I48.91 - Unspecified atrial fibrillation, Z76.89 - Persons encountering health services in other specified circumstances Complete Bld Count 1 Day C50.919 - Malignant neoplasm of unspecified site of unspecified female breast, E11.9 - Type 2 diabetes mellitus without complications, E78.5 - Hyperlipidemia, unspecified, I10 - Essential (primary) hypertension, I48.91 - Unspecified atrial fibrillation, Z01.818 - Encounter for other preprocedural examination Hemoglobin A1C PERCENT 1 Day C50.919 - Malignant neoplasm of unspecified site ofunspecified female breast, E11.9 - Type 2 diabetes mellitus without complications, E78.5 - Hyperlipidemia, unspecified, I10 - Essential (primary) hypertension, I48.91 - Unspecified atrial fibrillation, Z76.89 - Persons encountering health services in other specified circumstances Microalb and A/C Ratio Urine 1 Day C50.919 - Malignant neoplasm of unspecified site of unspecified female breast, E11.9 - Type 2 diabetes mellitus without complications, E78.5 - Hyperlipidemia, unspecified, I10 - Essential (primary) hypertension, I48.91 - Unspecified atrial fibrillation Thyroid Stimulating Hormone 1 Day C50.919 - Malignant neoplasm of unspecified site of unspecified female breast, E11.9 - Type 2 diabetes mellitus without complications, E78.5 - Hyperlipidemia, unspecified, I10 - Essential (primary) hypertension, I48.91 - Unspecified atrial fibrillation, Z76.89 - Persons encountering health services in other specified circumstances Urinalysis 1 Day C50.919 - Malignant neoplasm of unspecified site of unspecifiedfemale breast, E11.9 - Type 2 diabetes mellitus without complications, E78.5 - Hyperlipidemia, unspecified, I10 - Essential (primary) hypertension, I48.91 - Unspecified atrial fibrillation New famciclovir BY mouth twice a day as needed. 125 mg PO BID PRN 30 tabs 0RF cold sores losartan-hydrochlorothiazide 50-12.5 mg by mouth once a day 1 tab PO DAILY 90 tabs 3RF sertraline by mouth once a day for mood 100 mg PO DAILY 90 tabs 3RF Refilled atorvastatin by mouth once a day for Cholesterol 40 mg PO DAILY 90 tabs 3RF carvedilol must administer with a meal/food 25 mg PO BID 90 days 180 tabs 3RF fenofibrate 54 mg PO QDAY 90 tabs 3RF omeprazole magnesium (Acid Cutter Head Sharpener (omeprazole)) by mouth once a day 20 mg PO DAILY 90 caps 3RF Intake Visit reasons: New Patient (PCP Only) Nurse/MA Note: pt needs preop clearance at this appt-If you could please fax the preop to Attention Katherine [phone] at [facility] pt needs TD, PCV, Shingrix concerns: wants A1C checked, digestive fzobwa-blitrhrmuzjl-xgicik go without using laxatives; Allergies/Adverse Reactions solifenacin [Vesicare] Allergy (Unknown, Verified 01/17/23 13:30) Fatigue Home Medications apixaban 5 mg tablet (Eliquis) 5 mg PO BID 09/27/22 [History Confirmed 01/17/23] flecainide 50 mg tablet 50 mg PO BID 09/27/22 [History Confirmed 01/17/23] ketoconazole 2 % topical cream 1 application topical BID 09/27/22 [History Confirmed 01/17/23] tolterodine 4 mg capsule,extended release 24 hr 4 mg PO QDAY #90 caps 10/18/22 [Rx Confirmed 01/17/23] atorvastatin 40 mg tablet 40 mg PO DAILY #90 tabs 01/17/23 [Rx Confirmed 01/17/23] carvedilol 25 mg tablet 25 mg PO BID 90 days #180 tabs 01/17/23 [Rx Confirmed 01/17/23] famciclovir 125 mg tablet 125 mg PO BID PRN cold sores #30 tabs 01/17/23 [Rx Confirmed 01/17/23] fenofibrate 54 mg tablet 54 mg PO QDAY #90 tabs 01/17/23 [Rx Confirmed 01/17/23] losartan 50 mg-hydrochlorothiazide 12.5 mg tablet 1 tab PO DAILY #90 tabs 01/17/23 [Rx Confirmed 01/17/23] omeprazole magnesium 20 mg capsule,delayed release (Acid Cutter Head Sharpener (omeprazole)) 20 mg PO DAILY #90 caps 01/17/23 [Rx Confirmed 01/17/23] sertraline 100 mg tablet 100 mg PO DAILY #90 tabs 01/17/23 [Rx Confirmed 01/17/23] Vital Signs 01/17/23 09:03 Height 5 ft 2.5 in Weight 175 lb Body Mass Index (BMI) 31.5 Temperature 97.7 F Temp Source forehead Pulse 109 H Respiratory Rate 18 Blood Pressure 132/84 H BP Position Sitting BP Location lt brachial Pulse Oximetry (%) 94 Oxygen Delivery Method room air Provider Reviewed Vital Signs? Yes Recommended Changes Based on High Blood Pressure lifestyle PCP referral BMI Screening overweight, high plan-ref Past Patient History Active Problems (Updated 01/17/23 @ 13:56 by Fransisco Carmen MD) Pre-op exam Valgus deformity of great toe (Acute) Pes planovalgus (Acute) Medical History (Updated 01/17/23 @ 13:56 by Fransisco Carmen MD) Anxiety Arm pain, [...] , Onset Age: 64 Father Heart disease HPI 77 yo female establishing care with need for Preop exam for cataracts with PMHx of Dm type 2 ,GERD, lumbar radiculopathy, AFIB, HTN, Hyperlipidemia, OAB, depression w anxiety and breast cancer( 2013 partial mastectomy and radiation nochemo) . She states she has issues with constipation. Sennokot used prn and takes many towork. Has been most issue in last 2 weeks. but admits to fdc issue of goingevery 3 days . Does not have glucometer. never checked sugars. She anticipates cataract repair feb 08 and second Feb [address] Yana tovar general - yearly . Orders Mammos-01/03/23 last one normal. Had been on metformin in past . Depression.anxiet y- stable no med changes in years. Does not do well off of them - gets tearful. OAb - feels controlled.meds since 1983 Afib - sees Dr Mukerjee- ablation almost done but NSR on flecainide ( prn not needed since may 2022) Nonsmoker (college smoker), no etoh TD 2015 .Covid and flu done dec 2022. RSv anticipated. Had shingirx done x 2 .Pneumo x 2 after age 66 done. Colonoscopy 10/30/21-[address] Corcoran. Path TA x 7 hyperplastic x2-recall 3 years. 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 Daughter Sury Review of Systems Constitutional DENIES: chills and fever(s) Cardiovascular DENIES: chest pain, palpitations and dyspnea Respiratory DENIES: cough, difficulty breathing and dyspnea Gastrointestinal DENIES: abdominal pain, constipation, diarrhea, nausea and vomiting Genitourinary DENIES: hematuria and dysuria Exam Physical Examination Constitutional: Orientation: alert, oriented x3 and pleasant General: no acute distress and cooperative HENMT: PErrl EOMi positive cataracts bilaterally. Respiratory: Effort and Inspection: normal respiratory effort Auscultation:clear to auscultation bilaterally, no crackles, no rhonchi and no wheezes Cardiovascular: IRREg IRREg rate cointroilled. no edema Gastrointestinal: Inspection: abdomen not distended Palpation: soft and nontender Auscultation: normal bowel sounds Neurological: General: alert, oriented x3 and gait normal Hgb A1c: No Data to Display Data Reviewed Laboratory No Data to Display Coding Level of Care Code OV, NEW. MOD MDM Total minutes spent (including non xjzj-jz-scaz time) on DOS: 30 Diagnoses Pre-op exam Z01.818 Diabetes mellitus E11.9 Diabetes mellitus type: type 2 Diabetes mellitus ad terminal makeup operator insulin use: without ad terminal makeup operator use Diabetes mellitus complication status: without complication Fibrillation, atrial I48.91 Atrial fibrillation type: unspecified Hyperlipemia E78.5 Hyperlipidemia type: unspecified Hypertension I10 Hypertension type: primary hypertension Breast cancer C50.912 Breast location: unspecified site of breast Estrogen receptor status: unspecified Patient sex: female Laterality: left Recorded by: Fransisco Carmen MD <Electronically signed by Fransisco Carmen MD> 01/17/23 2540 CC: aPnkaj Teran MD ~ Vital Signs Vital Reading Result Reference Range Collection Date/Time Height 62.5 [in_i] January 17, 2 023 9:03am Weight 175.00 [lb_av] January 17, 2023 9:03am Body Temperature 97.7 [degF] 97.6-99.6 January, 2022 9:03am Heart Rate 109 /min 60-100 January [...] Insurance Providers Guarantor SHASHANK SCHULTZ Address [address] [address] Contact Info. Home Phone: Payer Policy Id Coverage Id Subscriber's Name Subscriber Id Effective Date Expiration Date [employer]TH [employer] [facility] [id number] 23 SHASHANK SCHULTZ [id number] MEDICARE [id number] SHASHANK SCHULTZ [id number] OTHER INS Encounters Encounter Location(s) Arrival/Admit Date Discharge/Depart Date Provider(s) Departed Physician/Provi raquel Office Visit [facility] January 17, 2023 1:21pm January 17, 2023 2:20pm Fransisco Carmen MD Registered Referred [facility] January 17, 2023 2:09pm Fransisco Carmen MD Recent Diagnosis Onset Date Pre-op exam Assessments Diagnosis Onset Date Resolution Status Pre-op exam noneactive Plan of Treatment Author Fransisco Carmen [facility] Authored January 17, 2023 2 :08pm check A1c- discussed conside ring metformin vs glp 1 . Fu sched in 3 months NSr on exam -followed Dr Patten check labs yearly follow up with Oncology provider at [facility] . medically cleared for cataract repair with stable medical issues. controlled rec try mag citrate for clean out given acute constipation Future Tests Future scheduled test information is unavailable Pending Tests Test Name Ordered Date Scheduled Date White Blood Count January 17, 2023 2:09pm Red Blood Count January 17, 2023 2:09pm Hemoglobin January 17, 2023 2:09pm Hematocrit January 17, 2023 2:09pm Mean Corpuscular Volume January 17, 2023 2:09p m Mean Corpuscular Hemoglobin January 17, 2023 2 :09pm Mean Corpuscular Hemoglobin Concent January 17, 2023 2:09pm Red Cell Distribution Width January 17, 2023 2 :09pm Platelet Count January 17, 2023 2:09pm Mean Platelet Volume January 17, 2023 2:09pm Thyroid Stimulating Hormone (TSH) January 17, 2023 2:09pm Hemoglobin A1c January 17, 2023 2:09pm Estimated Average Glucose mg/dL January 17 2:09pm Urine Color January 17, 2023 2:09pm Urine Appearance January 17, 2023 2:09pm Urine Glucose (UA) January 17, 2023 2:09pm Urine Bilirubin January 17, 2023 2:09pm Urine Ketones January 17, 2023 2:09pm Urine Specific [place] January 17, 2023 2:09pm Urine Blood January 17, 2023 2:09pm Urine pH January 17, 2023 2:09pm Urine Protein January 17, 2023 2:09pm Urine Urobilinogen January 17, 2023 2:09pm Urine Nitrite January 17, 2023 2:09pm Urine Leukocyte Esterase January 17, 2023 2:09 pm Urine WBC January 17, 2023 2:09pm Urine Culture Indicated January 17, 2023 2:09p m Glucose Level January 17, 2023 2:09pm Blood Urea Nitrogen January 17, 2023 2:09pm Creatinine January 17, 2023 2:09pm Estimat Glomerular Filtration Rate January 17, 2023 2:09pm Sodium Level January 17, 2023 2:09pm Potassium Level January 17, 2023 2:09pm Chloride Level January 17, 2023 2:09pm Carbon Dioxide Level January 17, 2023 2:09pm Anion Gap January 17, 2023 2:09pm Calcium Level January 17, 2023 2:09pm LDL Cholesterol Direct January 17, 2023 2:09pm Total Protein January 17, 2023 2:09pm Albumin January 17, 2023 2:09pm Total Bilirubin January 17, 2023 2:09pm Aspartate Amino Transf (AST/SGOT) January 17, 2023 2:09pm Alanine Aminotransferase (ALT/SGPT) January 17, 2023 2:09pm Alkaline Phosphatase January 17, 2023 2:09pm Urine Random Microalbumin January 17, 2023 2:0 9pm Urine Creatinine January 17, 2023 2:09pm Urine Microalbumin/Creatinin e Ratio January 17, 2023 2:09pm Comprehensive Metabolic Panel January 16, 2023 1:08pm January 17, 2023 2:09pm Hemoglobin A1C PERCENT January 16, 2023 1:08pm January 17, 2023 2:09pm LDL Cholesterol, Direct January 16, 2023 1:08p m January 17, 2023 2:09pm Microalb and A/C Ratio Urine January 16, 2023 1:08pm January 17, 2023 2:09pm Future Visits Future appointment information is unavailable Referrals to Other Providers Referral information is unavailable Future Procedures Procedure Name Ordered Date Scheduled Date Complete Bld Count January 16, 2023 1:08pm Oct jeanne 2022 2:09pm Thyroid Stimulating Hormone January 16, 2023 1 :08pm January 17, 2023 2:09pm Urinalysis January 16, 2023 1:08pm Octobe r 2022 2:09pm Future Medications Future medication information is unavailable Patient Instructions Patient instructions are unavailable
[2023-02-08 07:08] VITALS: BP 112/68; PULSE 120; RESP 16; TEMP 36.8; O2SAT 95
[2023-02-08] MEDS: Tropicam./Phenyleph. (1/2.5%) 5 ML BTL OS ×3 (07:26→07:43)
--- NOTE | 2023-02-08 07:44 | W.ANESPRE ---
General Info Date of Service Date Performed: 02/08/23 Height: 5 ft 2 in Weight: 78.9 kg Body Mass Index (BMI): 31.8 Surgical Procedure: Operation Date: 02/08/23 08:40 Proposed Procedure Side Surgeon p Cataract Extraction with IOL Implant Left Pankaj Teran MD Meds Allergies and Home Medications Allergies Allergy/AdvReac Type Severity Reaction Status Date / Time solifenacin [From Vesicare] AdvReac Intermediate fatigue Verified 02/08/23 07:30 Home Medication Medication Instructions Recorded apixaban 5 mg tablet 5 mg PO BID 02/05/23 atorvastatin 40 mg tablet 40 mg PO DAILY 02/05/23 carvedilol 25 mg tablet 25 mg PO BID 02/05/23 famciclovir 125 mg tablet 125 mg PO BID PRN 02/05/23 fenofibrate 54 mg tablet 54 mg PO QDAY 02/05/23 flecainide 50 mg tablet 50 mg PO Q12H 02/05/23 ketoconazole 2 % topical cream 1 applic topical BID 02/05/23 losartan 50 mg-hydrochlorothiazide 1 tab PO DAILY 02/05/23 12.5 mg tablet (Hyzaar) omeprazole magnesium 20 mg 20 mg PO DAILY 02/05/23 capsule,delayed release sertraline 100 mg tablet 100 mg PO DAILY 02/05/23 tolterodine 4 mg capsule,extended 4 mg PO DIRECTED 02/05/23 release 24 hr (Detrol LA) Current Visit Medications: Current Medications Generic Name Dose Route Start Last Admin Trade Name Freq PRN Reason Stop Dose Admin Acetaminophen 1,000 mg 02/08/23 06:00 Acetaminophen 500 Mg Tab PO 03/10/23 05:59 Q4H PRN PRN Balanced Salt Solution 500 ml 02/08/23 06:00 Balanced Salt Soln.-Plus 500 Ml Bag OP 03/10/23 05:59 DIRECTED SARTHAK Miscellaneous Medication 0 ml 02/08/23 06:00 Prednisolone 1%, Moxifloxacin 0.5%, Nepafenac 0.1% 5ml Btl OS 03/10/23 05:59 DIRECTED SARTHAK Miscellaneous Medication 0 ml 02/08/23 06:00 02/08/23 07:35 Tropicam./Phenyleph. (1/2.5%) 5 Ml Btl OS 03/10/23 05:59 1 drp DIRECTED SARTHAK Administration Tetracaine HCl 0 ml 02/08/23 06:00 Tetracaine 0.5% 4 Ml Btl OS 03/10/23 05:59 DIRECTED SARTHAK PFSH Active Problems Active Problems: Problem Status Onset Code Cortical age-related cataract, left eye H25.012 Nuclear age-related cataract, left eye H25.12 Medical History Medical History History of Papanicolaou smear of cervix Wrist pain Trigger finger Multiple nevi Skin tag Radiculopathy lumbar Night sweats Hypertension OAB (overactive bladder) Heart murmur congenital GERD (gastroesophageal reflux disease) Depression with anxiety Coronary vasospasm Constipation Breast CA Essential (primary) hypertension left breast Hyperlipemia Atrial fibrillation Diabetes mellitus Type 2 Surgical History Surgical History Hx of colonoscopy History of tonsillectomy History of partial mastectomy History of bladder suspension procedure History of appendectomy H/O wrist surgery H/O lumpectomy Tobacco Smoking/Tobacco Use Status: Never Alcohol Alcohol Intake: current Alcohol intake frequency: holidays/special occasions only Substance Use Substance use: Never Substance use type: does not use Vital Signs and Lab Results Vital Signs Most Recent Vital Signs in EMR: Most Recent Vital Signs Temp Pulse Resp BP Pulse Ox 36.8 C 120 H 16 112/68 95 02/08/23 07:08 02/08/23 07:08 02/08/23 07:08 02/08/23 07:08 02/08/23 07:08 Lab Results Blood Type / Crossmatch: No Data to Display Complete Blood Count: No Data to Display Complete Metabolic Panel: No Data to Display Liver Function Panel: No Data to Display Coagulation Panel: No Data to Display Cardiac Panel: No Data to Display Arterial Blood Gas: No Data to Display Venous Blood Gas: No Data to Display Pancreas Panel: No Data to Display Thyroid Panel: No Data to Display Infectious Disease: No Data to Display Blood Cultures: No Data to Display Toxicology Panel: No Data to Display Anesthesia Assessment and Plan Anesthesia History Personal History: No History of Anesthesia Complications Family History: No Family History of Anesthesia Complications Exercise Tolerance Exercise Tolerance: Metabolic Equivalents>4 Pertinent Negatives Pertinent Negatives: No Symptoms of GERD, No Major Pulmonary Symptoms or Complaints and No History of CVA/TIA Cardiac & Pulmonary Exam Cardiac Exam: Heart Murmur Present and Known Innocent Murmur Pulmonary Exam: Clear Bilateral Breath Sounds Implantable Cardiac Device Does patient have a Pacemaker or an ICD?: No Airway Exam Known Difficult Airway: No Mallampati Class: 1 Mouth Opening: Normal (> 3cm) Thyromental Distance: Greater than 3 cm Neck Range of Motion: Full ROM Neck Circumference: Normal Teeth Condition: Normal Dentition and Removable Dentures/Plates Upper ASA Classification ASA Score: ASA 3 Emergency Case?: No NPO Status NPO Status: NPO Clears >2 hours, Solids >8 hours Anesthesia Plan Resuscitation Status: Full Code Anesthesia Technique: MAC Anesthesia Airway Planned: Natural Airway Monitors Used: Standard Monitors Preoperative Comments:: Patient would like to start as just a local/no MKO
[2023-02-08 08:13] VITALS: BMI 31.8
[2023-02-08] MEDS: Tetracaine 0.5% 4 ML BTL OS (08:19)
[2023-02-08] MEDS: Povidone-Iodine Ophth 30 ML BTL (08:19)
[2023-02-08] MEDS: Balanced Salt Soln.-PLUS 500 ML BAG OP (08:27)
[2023-02-08] MEDS: Lidocaine 1% Pres-Free 5 ML VIAL (08:28)
[2023-02-08] MEDS: Phenylephrine/Lidocaine (15/10) MG/ML 1 ML VIAL (08:28)
[2023-02-08] MEDS: Duovisc Viscoelastic System EACH 1 EACH (08:30)
--- NOTE | 2023-02-08 08:46 | W.PM.DSUDISC ---
Date of service: 02/08/23 Time of Service: 08:46 Discharge Plan Disposition Patient Disposition: Home Discharge Details Attending Provider: Pankaj Teran Primary Care Provider: Julita Rizo Home Meds and New Rx's Prescriptions: No Action apixaban 5 mg tablet 5 mg PO BID flecainide 50 mg tablet 50 mg PO Q12H ketoconazole 2 % cream 1 applic topical BID tolterodine [Detrol LA] 4 mg capsule,extended release 24hr 4 mg PO DIRECTED atorvastatin 40 mg tablet 40 mg PO DAILY carvedilol 25 mg tablet 25 mg PO BID Rx Instructions: must administer with a meal/food famciclovir 125 mg tablet 125 mg PO BID PRN fenofibrate 54 mg tablet 54 mg PO QDAY losartan-hydrochlorothiazide [Hyzaar] 50-12.5 mg tablet 1 tab PO DAILY omeprazole magnesium 20 mg capsule,delayed release(DR/EC) 20 mg PO DAILY sertraline 100 mg tablet 100 mg PO DAILY Discharge Instructions Stand Alone Forms: Post-op Topical Cataract, John Longo ([facility]U) Discharge Orders Discharge Orders: Discharge Order (Routine); Ordered 02/08/23 Ordered By: Pankaj Teran DS: Diagnosis Discharge Diagnosis (1) Cortical age-related cataract, left eye: Status: Resolved (2) Nuclear age-related cataract, left eye: Status: Resolved
[2023-02-08 08:47] VITALS: BP 122/93; PULSE 62; RESP 16; TEMP 36.3; O2SAT 96
--- NOTE | 2023-02-08 08:47 | ROE_ITS ---
Date of service: 02/08/23 Time of Service: 08:47 Operative Note Operative Note DATE OF PROCEDURE: 02/08/23 PRE-OP DIAGNOSIS: Nuclear/cortical cataract, left eye POST-OP DIAGNOSIS: same PROCEDURE: Cataract extraction using phacoemulsification with intraocular lens implant, left eye SURGEON: Pankaj Teran ANESTHESIA TYPE: Local By Surgeon and MAC Refer to Anesthesia Record PATHOLOGY: none sent COMPLICATIONS: None Patient was transported to: same day Patient's condition: stable Implants: Mathieu Clareon [id number] Indications: Progressive decreased vision due to cataract, left eye Procedure Description: CATARACT SURGERY OPERATIVE REPORT PREOPERATIVE DIAGNOSIS: Nuclear/cortical cataract, left eye POSTOPERATIVE DIAGNOSIS: Same OPERATION: Cataract extraction using phacoemulsification with posterior chamber intraocular lens implant, left eye. IOL: IOL Fiberglass Insulation Installer/Model: Mathieu Clareon [id number] IOL Power: + 13.5 diopters IOL Serial Number: [id number] Optic Diameter: 6.0mm Haptic/Overall Diameter: 13.0mm PHACO INFO: MathieueMotion Technologiesurion Vision System with OZil and Active Fluidics Cumulative Dispersed Energy (CDE): 8.61 seconds SURGEON: Pankaj Teran MD, CARL ANESTHESIA: Monitored Anesthesia Care (MAC), with local sub-tenon's anesthetic infiltration COMPLICATIONS: None SPECIMENS: None INDICATIONS FOR PROCEDURE: The patient is a 77-year-old lady with history of myopia who has developed a symptomatic nuclear/cortical cataract in the left eye. She is significantly symptomatic that she desires cataract surgery and attempt to improve and maximize her vision. See office notes for detailed information. PROCEDURE: The correct surgical eye was identified and marked as the left eye and the pupil was dilated in the preoperative area using mydriatics and cycloplegics. The dilated pupil size was 7.0 mm. The patient elected to proceed without oral sedation. The patient was brought to the operating room where cardiopulmonary monitoring was instituted and surgical time-out was performed, confirming the correct operative eye and IOL power. Topical anesthesia was administered and ophthalmic povidone-iodine 5% was instilled into the conjunctival fornices. The salena-ocular area was prepped with Betadine 10% solution and draped in the usual sterile fashion for intraocular surgery, including an aperture drape. A Tegaderm transparent film dressing was cut in half and used to cover the lashes and lid margins. Care was taken to sequester the lashes and lid margins under the Tegaderm dressing. A lid speculum was placed between the lids of the operative eye and the Mathieu LuxOR Revalia operating microscope was maneuvered into position. Annalise scissors were then used to make a conjunctival buttonhole approximately 6mm posterior to the limbus in the inferonasal quadrant. Blunt dissection was carried out to expose bare sclera, and a blunt-tipped sub-tenon?s anesthesia cannula was introduced and passed posteriorly along the globe where non- preserved plain lidocaine was injected into posterior sub-Tenon?s space. A sideport knife was used to make a paracentesis port. Intraocular phenylephrine/lidocaine was injected into the anterior chamber. The anterior chamber was then filled with viscoelastic. A keratome knife was used construct a two-plane clear corneal tunnel extending 2.0mm into clear cornea. A flap was raised on the anterior capsule and capsulorhexis forceps were used to complete a continuous curvilinear capsulorhexis of 5.0 mm. Balanced salt solution was then used to perform cortical cleaving hydrodissection and nuclear hydrodelineation until the lens could be freely rotated within the capsular bag. The lens nucleus was then disassembled and removed within the capsular bag and iris plane using phacoemulsification. Residual cortical material was removed using the irrigation/aspiration handpiece. The posterior capsule was carefully polished to remove as much residual lens epithelial cells as safely possible. The capsular bag was then inflated and the anterior chamber deepened with viscoelastic. The lens implant described above was inserted into the capsular bag using the Mathieu Autonome Injector. A Kuglen hook was used to dial the IOL into position. Residual viscoelastic was then removed first from posterior to the IOL, then from the anterior chamber using the I/A handpiece. The lens implant was noted to center nicely within the capsular bag. The incisions were stromally hydrated, and the anterior chamber was reformed using BSS. Then 0.5cc of moxifloxacin 1.0mg/ml were injected into the capsular bag and anterior chamber. The incisi ons were checked with a Weck spear and found to be secure. Several drops of ophthalmic povidone-iodine 5% were then applied to the eye followed by two drops of Imprimis combination prednisolone/moxifloxacin/nepafenac solution. The drapes were removed and a clear plastic protective eye shield was placed over the eye. The patient was then returned to Same Day Surgery in stable condition.
--- NOTE | 2023-02-08 09:16 | W.ANESPOSTOP ---
Postoperative Evaluation Date, Time and Location Date Performed: 02/08/23 Time Performed: 08:55 Patient Location: Day Surgery Unit Vital Signs Most Recent Imported Vital Signs: Most Recent Vital Signs Temp Pulse Resp BP Pulse Ox 36.3 C L 62 16 122/93 H 96 02/08/23 08:47 02/08/23 08:47 02/08/23 08:47 02/08/23 08:47 02/08/23 08:47 Pain Score Most Recent Pain Score: Most Recent Pain Score Pain Level 0 02/08/23 08:47 Assessment Mental Status: Awake (Alert & Oriented to Patient Baseline) Airway and Respiratory Function: Patent airway with normal (patient baseline) respiratory exam Cardiovascular Function: Hemodynamically Stable Hydration Status: Adequately Hydrated Nausea & Vomiting: No Nausea or Vomiting Pain: Pt. Denies Any Pain Peripheral Nerve Block: Patient did not receive a nerve block
== END 2023-02-08 09:12 | disposition home or self-care (01) ==
LOC: SUR 06:55
PROVIDERS: PCP Nurse Practitioner Adult Health; Visit Provider Ophthalmology
PROC: (CPT 66984; principal; 2023-02-08 08:30)
DX: H25.012 Cortical age-related cataract, left eye (principal); H25.12 Age-related nuclear cataract, left eye; K21.9 Gastro-esophageal reflux disease without esophagitis; I10 Essential (primary) hypertension
CPT/HCPCS: 66984; 00123; V2632

== ENCOUNTER 2023-02-22 06:50 | Day surgery (SDC) | payer MEDICARE, BC, SELFPAY ==
--- NOTE | 2023-02-22 06:37 | W.PREOPHP ---
Assessment and Plan Assessment and plan (1) Cortical age-related cataract, right eye: Status: Acute Assessment and plan: Assessment: Significant cataract of the right eye. Plan: Cataract extraction with lens implantation of the right eye. (2) Nuclear age-related cataract, right eye: Status: Acute Assessment and plan: Assessment: Significant cataract of the right eye. Plan: Cataract extraction with lens implantation of the right eye History of Present Illness History of Present Illness Chief Complaint: Decreased vision right eye Narrative: The patient is a 77-year-old lady with history of progressive decreased vision in both eyes at both distance and near. She has significant glare when driving at night, and cannot read road signs. She has difficulty with depth perception and parking her car. On examination she was noted to have bilateral nuclear/cortical cataract. She will underwent cataract surgery in the left eye on 02/08/2023. She is doing well postoperatively, and now presents for cataract surgery in the right eye. Review of Systems All systems reviewed & are unremarkable except as noted in HPI and below PFSH All Active Problems Cortical age-related cataract, right eye (Acute) Nuclear age-related cataract, right eye (Acute) Medical History History of Papanicolaou smear of cervix Wrist pain Trigger finger Multiple nevi Skin tag Radiculopathy lumbar Night sweats Hypertension OAB (overactive bladder) Heart murmur congenital GERD (gastroesophageal reflux disease) Depression with anxiety Coronary vasospasm Constipation Breast CA Essential (primary) hypertension left breast Hyperlipemia Atrial fibrillation Diabetes mellitus Type 2 Surgical History S/P cataract surgery Hx of colonoscopy History of tonsillectomy History of partial mastectomy History of bladder suspension procedure History of appendectomy H/O wrist surgery H/O lumpectomy Family History Other Heart disease Social History Smoking/Tobacco Use Status: Never Smoking risk assessment performed?: Yes Alcohol Intake: current Alcohol Intake frequency: holidays/special occasions only Drug use: Never Substance use type: does not use Housing: house Do you feel safe at home: Yes Do you feel safe in your relationship?: Yes Meds Allergies and Home Medications Allergies Allergy/AdvReac Type Severity Reaction Status Date / Time solifenacin [From Vesicare] AdvReac Intermediate fatigue Verified 02/20/23 15:16 Home Medications Medication Instructions Recorded Confirmed Type apixaban 5 mg tablet 5 mg PO BID 02/05/23 02/20/23 History atorvastatin 40 mg tablet 40 mg PO DAILY 02/05/23 02/20/23 History carvedilol 25 mg tablet 25 mg PO BID 02/05/23 02/20/23 History famciclovir 125 mg tablet 125 mg PO BID PRN 02/05/23 02/20/23 History fenofibrate 54 mg tablet 54 mg PO QDAY 02/05/23 02/20/23 History ketoconazole 2 % topical cream 1 applic topical BID 02/05/23 02/20/23 History losartan 50 mg-hydrochlorothiazide 1 tab PO DAILY 02/05/23 02/20/23 History 12.5 mg tablet (Hyzaar) omeprazole magnesium 20 mg 20 mg PO DAILY 02/05/23 02/20/23 History capsule,delayed release sertraline 100 mg tablet 100 mg PO DAILY 02/05/23 02/20/23 History tolterodine 4 mg capsule,extended 4 mg PO DIRECTED 02/05/23 02/20/23 History release 24 hr (Detrol LA) Exam Eyes Other: Most recent ocular examination is significant for corrected visual acuity of 20/50 in the right eye. Extraocular motility is normal. Intraocular pressure is 9 OD, 9 OS. Slit-lamp examination reveals mild cortical with moderate nuclear cataract in the right eye. There is a well-positioned PCIOL in the left eye with clear posterior capsule. Funduscopic examination reveals disc cupping of 0.4 OD 0.5 OS with normal vessels, macula, peripheral retina and vitreous. Resp Auscultation: clear to auscultation bilaterally Cardio Rate: regular rate Rhythm: regular rhythm
--- OUTSIDE RECORDS SUMMARY | 2023-02-22 06:53 | XMS_ITS | Patient Health Record ---
Author Name Unknown Organization [facility] Address [address] [place], [place] [id number] Care Team Providers Care Cheese Packer Name Role Phone Ronald Mariama cedeño Primary Care Provider [phone] Allergies Allergen (clinical drug ingredient) Drug/Non Drug [...] INFLUENZA VIRUS VACCINE FLUVIRIN Unknown 03/10/2015 Administered @[facility] 1 MONTH AGO INFLUENZA VIRUS VACCINE FLUVIRIN IM Intramuscular 02/22/2017 Administered Influenza 'afluria' given pt tolerated...Eb Pneumococcal IM Intramuscular 02/22/2017 Administered Pneu mococcal 23 given pt tolerated...Eb Tdap TETNUS IM Intramuscular 07/15/2018 Administered Pt tolerated injection well [facility] [id number] Prevnar 13/pneumococcal 13 Unknown 02/23/2021 Administered Prevnar 13 given [facility]#[id number] Social History Tobacco Use: Social History Observation [...] Notes Problem Gastro-esophageal reflux disease without esophagitis (149196268) Gastro-esophagea l reflux disease without esophagitis (K21.9) Active confirmed Problem Screening for malignant neoplasm of breast (482435123) Encounter for screening mammogram for malignant neoplasm of breast (Z12.31) Active confirmed Problem Screening for malignant neoplasm of colon (973903725) Encounter for screening for malignant neoplasm of colon (Z12.11) Active confirmed Problem Screening for osteoporosis (104106076) Encounter for screening for osteoporosis (Z13.820) Active confirmed Problem Vaccination given (062815336) Encounter for immunization (Z23) Active confirmed Problem Essential hypertension (84304803) Essential (primary) hypertension (I10) Active confirmed Problem Body mass index 30+ - obesity (590472962) Body mass index (BMI) 30.0-30.9, adult (Z68.30) Active confirmed Problem Hyperlipidemia (52899842) Hyperlipidemia, unspecified (E78.5) Active confirmed Problem Hyperlipidemia (88400657) Other hyperlipidemia (E78.4) Active confirmed Problem Complication due to diabetes mellitus type 2 (27898523571751) Type 2 diabetes mellitus with other specified complication (E11.69) Active confirmed Problem Body mass index 30.0 0 to 34.99 (880933043844206) Body mass index (BMI) 31.0-31.9, adult (Z68.31) Active confirmed Problem Vitamin D deficiency (80267687) Vitamin D deficiency, unspecified (E55.9) Active confirmed Problem Mixed hyperlipidemia (114842163) Mixed hyperlipidemia (E78.2) Active confirmed Problem Cough (97377187) Cough (R05) Active confirmed Problem Constipation (52896600) Constipation, unspecified (K59.00) Active confirmed Problem Fatty liver (792370027) Fatty (change of) liver, not elsewhere classified (K76.0) Active confirmed Problem Abnormal gait (42239416) Unsteadiness on feet (R26.81) Active confirmed Problem Type II diabetes mellitus without complication (858658185) Type 2 diabetes mellitus without complications (E11.9) Active confirmed Problem Paroxysmal atrial fibrillation (074031607) Paroxysmal atrial fibrillation (I48.0) Active confirmed Problem Diabetes mellitus without complication (432043375) Other specified diabetes mellitus without complications (E13.9) Active confirmed Problem Atherosclerosis of aorta (97388110) Atherosclerosis of aorta (I70.0) Active confirmed CTA of the chest 07/2015 Problem Atherosclerosis of artery (053819861) Atherosclerosis of other arteries (I70.8) Active confirmed Ct of pelvis 02/2019 in docs, calcified iliac arteries Problem Herpesviral vesicula r dermatitis (843140612) 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) Active confirmed Problem Basal cell carcinoma of nose (594785596) Basal cell carcinoma of skin of nose (C44.311) Active confirmed Problem Basal cell carcinoma of face (067718968) Basal cell carcinoma of skin of other parts of face (C44.319) Active confirmed Problem Malignant neoplasm o f skin (385178877) Unspecified malignant neoplasm of skin, unspecified (C44.90) Active confirmed Problem Basal cell carcinoma of skin (427169622) Basal cell carcinoma of skin, unspecified (C44.91) Active confirmed Problem Malignant neoplasm o f female breast (694902599) Malignant neoplasm of unspecified site of unspecified female breast (C50.919) Active confirmed Problem Benign neoplasm of skin of face (10007019) Other benign neoplasm of skin of other parts of face (D23.39) Active confirmed Problem Major depression, single episode, in complete remission (30025522) Major depressive disorder, single episode, in full remission (F32.5) Active confirmed Problem Seborrheic keratosis (789120636) Other seborrheic keratosis (L82.1) Active confirmed Problem Acquired spondylolisthesis (778744810) Spondylolysis, cervical region (M43.02) Active confirmed Problem 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, 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) Active confirmed Problem Overactive bladder (126321683) Overactive bladder (N32.81) Active confirmed Problem Skin sensation disturbance (81122753) Paresthesia of skin (R20.2) Active confirmed Problem Elevated levels of transaminase & lactic acid dehydrogenase (370166345) Nonspecific elevation of levels of transaminase and lactic acid dehydrogenase [LDH] (R74.0) Active confirmed Problem Long-term current us e of antiplatelet drug (281055926934472) group home (current) use of aspirin (Z79.82) Active confirmed Problem Pure hypercholesterolemia (071459882) Pure hypercholesterol emia, unspecified (E78.00) Active confirmed Problem Chronic idiopathic constipation (49609644) Chronic idiopathic constipation (K59.04) Active confirmed Problem 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) Cervical disc disorder with myelopathy, mid-cervical region, unspecified level (M50.020) Active confirmed Problem Body mass index 30+ - obesity (020300275) Body mass index [BMI]30.0-30.9, adult (Z68.30) Active confirmed Encounters Encounter Location Date Provider Diagnosis [facility] [address] [place], [place] [id number] 02/23/2022 Mariama gala Ronald [employer] [facility] [address] [place], [place] [id number] 12/18/2022 Mariama gala Ronald Plan Of Treatment Pending Test Test Name Order Date DEXA 02/12/2019 DEXA 02/18/2018 Vitamin B12 and Folate 04/17/2016 Hemoglobin A1c 03/02/2017 Hemoglobin A1c 02/23/2021 Lipids, Total, Serum 02/22/2017 TSH 06/08/2014 TSH+Free T4 06/18/2017 MRI : C spine 05/09/2017 Urine Culture and Sensitivity 03/15/2015 Urine Culture and Sensitivity 06/06/2016 Urine Culture and Sensitivity 06/08/2014 BUN, Creatinine 05/09/2017 MRI : Brain with and without contrast Vitamin D, 25-Hydroxy 03/15/2015 Microalb/Creat Ratio, Randm Ur 9 TSH+Free T4 04/17/2016 URINALYSIS REFLEX 03/15/2015 CMP 06/08/2014 CMP 02/22/2017 CMP 07/26/2014 CMP 05/03/2014 CMP 04/17/2016 CMP 06/18/2017 CMP [...] End Date Medicare PartAB [address] [place] [address] [id number] SHASHANK TORRES Self - patient is the insured 1 [facility] Insurance Comp [address] [place] [address] [id number] PLAN F SHASHANK TORRES Self - patient [...]
--- OUTSIDE RECORDS SUMMARY | 2023-02-22 06:53 | XMS_ITS | Continuity of Care Document ---
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) use of anticoagulants(Final) - Discharge Disposition: Home or Self Care Attending Physician: Sandor Oliveira MD, FACNaty, FACP, FASFILIBERTO, FASE, FSCCT Admitting Physician: Sandor Oliveira MD, ELFEGO, SHEAP, FASFILIBERTO, FASSandrine, FSCCT Referring Physician: Sandor Oliveira MD, ELFEGO, SHEAP, LENNOX, JOANNA, FSCCT Problem List Condition Confirmation Course Effective Dates Status Health St atus Informant Atrial fibrillation Confirmed Active Results Laboratory List Name Date Comprehensive Metabolic Panel ([facility] METABOLIC PROFILE) 02/07/23 Thyroid Stimulating Hormone (TSH) 3 Most recent to oldest [Reference Range]: 1 BUN [8-26 mg/dL] 15 mg/dL (02/07/23 10:58 AM) Glucose Level [74-106 mg/dL] 115 mg/dL *HI* (02/07/23 10:58 AM) Potassium Level [3.5-5.1 mmol/L] 4.4 mmo l/L (02/07/23 10:58 AM) AST [15-41 IntlUnit/L] 26 IntlUnit/L (02/07/23 10:58 AM) ALT [14-54 IntlUnit/L] 17 IntlUnit/L (02/07/23 10:58 AM) Osmolality [275-295 mOsm/kg] 274 mOsm/kg *LOW* (02/07/23 10:58 AM) Sodium Level [134-143 mmol/L] 136 mmol/L (02/07/23 10:58 AM) Calcium Level [8.9-10.3 mg/dL] 9.5 mg/dL (02/07/23 10:58 AM) Albumin Level [3.5-5.0 g/dL] 3.8 g/dL (02/07/23 10:58 AM) Protein Total [6.5-8.1 g/dL] 7.6 g/dL (02/07/23 10:58 AM) Bilirubin Total [0.2-1.2 mg/dL] 0.9 mg/d L (02/07/23 10:58 AM) Alk Phos [38-130 IntlUnit/L] 81 IntlUnit /L (02/07/23 10:58 AM) CO2 [22-32 mmol/L] 25 mmol/L (02/07/23 10:58 AM) TSH [0.45-5.33 mcIntlUnit/mL] 2.07 mcInt lUnit/mL (02/07/23 10:58 AM) Chloride Level [98-111 mmol/L] 101 mmol/ L (02/07/23 10:58 AM) A/G Ratio [1.0-2.5 g/dL] 1.0 g/dL (02/07/23 10:58 AM) BUN/Creat Ratio [8.0-20.0] 16.1 (02/07/23 10:58 AM) Globulin [2.3-3.5 g/dL] 3.8 g/dL *HI* (02/07/23 10:58 AM) Creatinine Level [0.44-1.00 mg/dL] 0.93 mg/dL (02/07/23 10:58 AM) Anion Gap [3.0-12.0] 10.0 (02/07/23 10:58 AM) eGFR CKD-EPI [>=60 mL/min/1.73 m2] 64 mL /min/1.73 m2 (02/07/23 10:58 AM) Patient Care team information Care Team Personnel Name: DENIA CELIS APRN Position: No Access Member Role: Primary Care Physician Address: Address: [address] [place] [address]
--- OUTSIDE RECORDS SUMMARY | 2023-02-22 06:53 | XMS_ITS | Patient Health Record ---
Author Name Unknown Organization [facility] Address [address] [place] [address] Care Team Providers Care Tankage Grinder Operator Name Role Phone Ronald HENSON, Mariama Primary Care Provider Elder Cantor Unavailable [phone] Allergies No Known Allergies Reason For Referral [...] Problem Status W/U Status Risk Notes Problem 682587774 Spinal stenosis, lumbosacral region (M48.07) Active confirmed Problem 20020112 Other intervertebral disc displacement, lumbar region (M51.26) Active confirmed Problem 276698650371157 Trochanteric bursitis of right hip (M70.61) Active confirmed Problem 19762277 Acute pain of right hip (M25.551) Active confirmed Problem 44323435 DDD (degenerativ e disc disease), lumbar (M51.36) Active confirmed Problem 56673555 Myalgia, other site (M79.18) Active confirmed Plan [...] Date Coverage End Date MEDICARE [address] [place] [address] [id number] Martha Jones Self - patient is the insured 2 [facility] [address] [place] [address] [id number] Martha Jones Self - patient is the insured 0 Medical (General) History Medical History History ICD Code No Hx provided by pt Surgical History Surgery Date(Month/Year) wrist surgery breast cancer bladder suspension, unspecified appendectomy tonsillectomy Hospitalization History Reason Date(Month/Year) for surgeries above
[2023-02-22 06:55] VITALS: BP 129/91; PULSE 92; RESP 20; TEMP 36.8; O2SAT 93
[2023-02-22] MEDS: Tropicam./Phenyleph. (1/2.5%) 5 ML BTL OD ×3 (07:07→07:20)
--- NOTE | 2023-02-22 07:41 | W.ANESPRE ---
General Info Date of Service Date Performed: 02/22/23 Height: 5 ft 2 in Weight: 78.5 kg Body Mass Index (BMI): 31.6 Surgical Procedure: Operation Date: 02/22/23 08:40 Proposed Procedure Side Surgeon p Cataract Extraction with IOL Implant Right Pankaj Teran MD Meds Allergies and Home Medications Allergies Allergy/AdvReac Type Severity Reaction Status Date / Time solifenacin [From Vesicare] AdvReac Intermediate fatigue Verified 02/22/23 07:10 Home Medication Medication Instructions Recorded apixaban 5 mg tablet 5 mg PO BID 02/05/23 atorvastatin 40 mg tablet 40 mg PO DAILY 02/05/23 carvedilol 25 mg tablet 25 mg PO BID 02/05/23 famciclovir 125 mg tablet 125 mg PO BID PRN 02/05/23 fenofibrate 54 mg tablet 54 mg PO QDAY 02/05/23 ketoconazole 2 % topical cream 1 applic topical BID 02/05/23 losartan 50 mg-hydrochlorothiazide 1 tab PO DAILY 02/05/23 12.5 mg tablet (Hyzaar) omeprazole magnesium 20 mg 20 mg PO DAILY 02/05/23 capsule,delayed release sertraline 100 mg tablet 100 mg PO DAILY 02/05/23 tolterodine 4 mg capsule,extended 4 mg PO DIRECTED 02/05/23 release 24 hr (Detrol LA) Current Visit Medications: Current Medications Generic Name Dose Route Start Last Admin Trade Name Freq PRN Reason Stop Dose Admin Acetaminophen 1,000 mg 02/22/23 06:00 Acetaminophen 500 Mg Tab PO 03/24/23 05:59 Q4H PRN PRN Balanced Salt Solution 500 ml 02/22/23 06:00 Balanced Salt Soln.-Plus 500 Ml Bag OP 03/24/23 05:59 DIRECTED [facility] Miscellaneous Medication 0 ml 02/22/23 06:00 02/22/23 07:20 Tropicam./Phenyleph. (1/2.5%) 5 Ml Btl OD 03/24/23 05:59 1 drp DIRECTED [facility] Administration Miscellaneous Medication 0 ml 02/22/23 06:00 Prednisolone 1%, Moxifloxacin 0.5%, Nepafenac 0.1% 5ml Btl OD 03/24/23 05:59 DIRECTED [facility] Tetracaine HCl 0 ml 02/22/23 06:00 Tetracaine 0.5% 4 Ml Btl OD 03/24/23 05:59 DIRECTED [facility] Active Problems Active Problems: Problem Status Onset Code Cortical age-related cataract, right eye H25.011 Nuclear age-related cataract, right eye H25.11 Cortical age-related cataract, left eye H25.012 Nuclear age-related cataract, left eye H25.12 Medical History Medical History History of Papanicolaou smear of cervix Wrist pain Trigger finger Multiple nevi Skin tag Radiculopathy lumbar Night sweats Hypertension OAB (overactive bladder) Heart murmur congenital GERD (gastroesophageal reflux disease) Depression with anxiety Coronary vasospasm Constipation Breast CA Essential (primary) hypertension left breast Hyperlipemia Atrial fibrillation Diabetes mellitus Type 2 Surgical History Surgical History S/P cataract surgery Hx of colonoscopy History of tonsillectomy History of partial mastectomy History of bladder suspension procedure History of appendectomy H/O wrist surgery H/O lumpectomy Tobacco Smoking/Tobacco Use Status: Never Alcohol Alcohol Intake: current Alcohol intake frequency: holidays/special occasions only Substance Use Substance use: Never Substance use type: does not use Vital Signs and Lab Results Vital Signs Most Recent Vital Signs in EMR: Most Recent Vital Signs Temp Pulse Resp BP Pulse Ox 36.8 C 92 H 20 129/91 H 93 02/22/23 06:55 02/22/23 06:55 02/22/23 06:55 02/22/23 06:55 02/22/23 06:55 Lab Results Blood Type / Crossmatch: No Data to Display Complete Blood Count: No Data to Display Complete Metabolic Panel: No Data to Display Liver Function Panel: No Data to Display Coagulation Panel: No Data to Display Cardiac Panel: No Data to Display Arterial Blood Gas: No Data to Display Venous Blood Gas: No Data to Display Pancreas Panel: No Data to Display Thyroid Panel: No Data to Display Infectious Disease: No Data to Display Blood Cultures: No Data to Display Toxicology Panel: No Data to Display Anesthesia Assessment and Plan Anesthesia History Personal History: No History of Anesthesia Complications Family History: No Family History of Anesthesia Complications Exercise Tolerance Exercise Tolerance: Metabolic Equivalents>4 Pertinent Negatives Pertinent Negatives: No Symptoms of GERD Cardiac & Pulmonary Exam Cardiac Exam: Other Pulmonary Exam: Clear Bilateral Breath Sounds Implantable Cardiac Device Does patient have a Pacemaker or an ICD?: No Airway Exam Known Difficult Airway: No Mallampati Class: 1 Mouth Opening: Normal (> 3cm) Thyromental Distance: Greater than 3 cm Neck Range of Motion: Full ROM Neck Circumference: Normal Teeth Condition: Normal Dentition and Removable Dentures/Plates Upper ASA Classification ASA Score: ASA 3 Emergency Case?: No NPO Status NPO Status: NPO Clears >2 hours, Solids >8 hours Anesthesia Plan Resuscitation Status: Full Code Anesthesia Technique: MAC Anesthesia Airway Planned: Natural Airway Monitors Used: Standard Monitors
[2023-02-22 07:43] VITALS: BMI 31.6
[2023-02-22] MEDS: Balanced Salt Soln.-PLUS 500 ML BAG OP (08:23)
[2023-02-22] MEDS: Tetracaine 0.5% 4 ML BTL OD (08:25)
[2023-02-22] MEDS: Duovisc Viscoelastic System EACH 1 EACH (08:26)
[2023-02-22] MEDS: Lidocaine 1% Pres-Free 5 ML VIAL (08:27)
[2023-02-22] MEDS: Phenylephrine/Lidocaine (15/10) MG/ML 1 ML VIAL (08:28)
[2023-02-22] MEDS: Povidone-Iodine Ophth 30 ML BTL (08:30)
[2023-02-22 08:36] VITALS: BP 126/80; PULSE 94; RESP 16; TEMP 36.7; O2SAT 93
--- NOTE | 2023-02-22 08:36 | W.PM.DSUDISC ---
Date of service: 02/22/23 Time of Service: 08:36 Discharge Plan Disposition Patient Disposition: Home Discharge Details Attending Provider: Pankaj Teran Primary Care Provider: Julita Rizo Home Meds and New Rx's Prescriptions: No Action apixaban 5 mg tablet 5 mg PO BID ketoconazole 2 % cream 1 applic topical BID tolterodine [Detrol LA] 4 mg capsule,extended release 24hr 4 mg PO DIRECTED atorvastatin 40 mg tablet 40 mg PO DAILY carvedilol 25 mg tablet 25 mg PO BID Rx Instructions: must administer with a meal/food famciclovir 125 mg tablet 125 mg PO BID PRN fenofibrate 54 mg tablet 54 mg PO QDAY losartan-hydrochlorothiazide [Hyzaar] 50-12.5 mg tablet 1 tab PO DAILY omeprazole magnesium 20 mg capsule,delayed release(DR/EC) 20 mg PO DAILY sertraline 100 mg tablet 100 mg PO DAILY Discharge Instructions Stand Alone Forms: John Longo (DSU) Discharge Orders Discharge Orders: Discharge Order (Routine); Ordered 02/22/23 Ordered By: Pankaj Teran DS: Diagnosis Discharge Diagnosis (1) Cortical age-related cataract, right eye: Status: Resolved (2) Nuclear age-related cataract, right eye: Status: Resolved
--- NOTE | 2023-02-22 08:37 | ROE_ITS ---
Date of service: 02/22/23 Time of Service: 08:37 Operative Note Operative Note DATE OF PROCEDURE: 02/22/23 PRE-OP DIAGNOSIS: Nuclear/cortical cataract, right eye POST-OP DIAGNOSIS: same PROCEDURE: Cataract extraction using phacoemulsification with intraocular lens implant, right eye SURGEON: Pankaj Teran ANESTHESIA TYPE: Local By Surgeon and MAC Refer to Anesthesia Record ESTIMATED BLOOD LOSS: 0 PATHOLOGY: none sent COMPLICATIONS: None Patient was transported to: same day Patient's condition: stable Implants: Mathieu Clareon [id number] Indications: Progressive decreased vision due to cataract, right eye Procedure Description: CATARACT SURGERY OPERATIVE REPORT PREOPERATIVE DIAGNOSIS: Nuclear/cortical cataract, right eye POSTOPERATIVE DIAGNOSIS: Same OPERATION: Cataract extraction using phacoemulsification with posterior chamber intraocular lens implant, right eye. IOL: IOL Installer Technician/Model: Mathieu Clareon [id number] IOL Power: + 15.0 diopters IOL Serial Number: [id number] Optic Diameter: 6.0mm Haptic/Overall Diameter: 13.0mm PHACO INFO: Mathieu Le [employer]utin rouge.comurion Vision System with OZil and Active Fluidics Cumulative Dispersed Energy (CDE): 7.01 seconds SURGEON: Pankaj Teran MD, CARL ANESTHESIA: Monitored Anesthesia Care (MAC), with local sub-tenon's anesthetic infiltration COMPLICATIONS: None SPECIMENS: None INDICATIONS FOR PROCEDURE: The patient is a 78-year-old lady with history of myopia who has developed significant bilateral nuclear/cortical cataract. She has already undergone cataract surgery in the left eye and is doing well postoperatively. She now presents for cataract surgery in the right eye. See office notes for detailed information. PROCEDURE: The correct surgical eye was identified and marked as the right eye and the pupil was dilated in the preoperative area using mydriatics and cycloplegics. The dilated pupil size was 7.0 mm. The patient elected to proceed without oral sedation. The patient was brought to the operating room where cardiopulmonary monitoring was instituted and surgical time-out was performed, confirming the correct operative eye and IOL power. Topical anesthesia was administered and ophthalmic povidone-iodine 5% was instilled into the conjunctival fornices. The salena-ocular area was prepped with Betadine 10% solution and draped in the usual sterile fashion for intraocular surgery, including an aperture drape. A Tegaderm transparent film dressing was cut in half and used to cover the lashes and lid margins. Care was taken to sequester the lashes and lid margins under the Tegaderm dressing. A lid speculum was placed between the lids of the operative eye and the Mariah-Charleen operating microscope was maneuvered into position. Annalise scissors were then used to make a conjunctival buttonhole approximately 6mm posterior to the limbus in the inferonasal quadrant. Blunt dissection was carried out to expose bare sclera, and a blunt-tipped sub-tenon?s anesthesia cannula was introduced and passed posteriorly along the globe where non- preserved plain lidocaine was injected into posterior sub-Tenon?s space. A sideport knife was used to make a paracentesis port. Intraocular phenylephrine/lidocaine was injected into the anterior chamber. The anterior chamber was then filled with viscoelastic. A keratome knife was used to construct a two--plane clear corneal tunnel extending 2.0mm into clear cornea. A flap was raised on the anterior capsule and capsulorhexis forceps were used to complete a continuous curvilinear capsulorhexis of 5.0 mm. Balanced salt solution was then used to perform cortical cleaving hy drodissection and nuclear hydrodelineation until the lens could be freely rotated within the capsular bag. The lens nucleus was then disassembled and removed within the capsular bag and iris plane using phacoemulsification. Residual cortical material was removed using the I/A handpiece. The posterior capsule was carefully polished to remove as much residual lens epithelial cells as safely possible. The capsular bag was then inflated and the anterior chamber deepened with cohesive viscoelastic. The lens implant described above was inserted into the capsular bag using the Mathieu Autonome Injector. A Kuglen hook was used to dial the IOL into position. Residual viscoelastic was then removed first from posterior to the IOL, then from the anterior chamber using the I/A handpiece. The lens implant was noted to center nicely within the capsular bag. The incisions were stromally hydrated, and the anterior chamber was reformed using BSS. Then 0.5cc of moxifloxacin 1.0mg/ml were injected into the capsular bag and anterior chamber. The incisions were checked with a Weck spear and found to be secure. Several drops of ophthalmic povidone-iodine 5% were then applied to the eye followed by two drops of Imprimis combination prednisolone/moxifloxacin/nepafenac solution. The drapes were removed and a clear plastic protective eye shield was placed over the eye. The patient was then returned to Same Day Surgery in stable condition.
--- NOTE | 2023-02-22 08:57 | W.ANESPOSTOP ---
Postoperative Evaluation Date, Time and Location Date Performed: 02/22/23 Time Performed: 08:45 Patient Location: Day Surgery Unit Vital Signs Most Recent Imported Vital Signs: Most Recent Vital Signs Temp Pulse Resp BP Pulse Ox 36.7 C 94 H 16 126/80 93 02/22/23 08:36 02/22/23 08:36 02/22/23 08:36 02/22/23 08:36 02/22/23 08:36 Pain Score Most Recent Pain Score: Most Recent Pain Score Pain Level 0 02/22/23 08:36 Assessment Mental Status: Awake (Alert & Oriented to Patient Baseline) Airway and Respiratory Function: Patent airway with normal (patient baseline) respiratory exam Cardiovascular Function: Hemodynamically Stable Hydration Status: Adequately Hydrated Nausea & Vomiting: No Nausea or Vomiting Pain: Pt. Denies Any Pain Peripheral Nerve Block: Patient did not receive a nerve block
== END 2023-02-22 08:58 | disposition home or self-care (01) ==
LOC: SUR 06:51
PROVIDERS: PCP Nurse Practitioner Adult Health; Visit Provider Ophthalmology
PROC: (CPT 66984; principal; 2023-02-22 08:30)
DX: H25.011 Cortical age-related cataract, right eye (principal); H25.11 Age-related nuclear cataract, right eye; K21.9 Gastro-esophageal reflux disease without esophagitis; I10 Essential (primary) hypertension; Z98.42 Cataract extraction status, left eye
CPT/HCPCS: 66984; 00123; V2632